=== PATIENT | male | born 1935 | race Caucasian/White ===

== ENCOUNTER 2024-06-11 00:43 | Inpatient (IN) | payer MEDICARE, OTHER, SELFPAY ==
[2024-06-10 19:10] VITALS: BP 166/63
[2024-06-10 19:40] LABS: % Basophils 0.3 % (0-2); % Immature Granulocytes 0.5 % (0-0.5); % Lymphocytes 11.8 % (20.5-51.1); % Monocytes 10.3 % (1.7-9.3); % Neutrophils 77.1 % (42.2-75.2); Absolute Immature Granulocytes 0.1 10^3/uL (0-0.05); Absolute Lymphocytes 1.8 10^3/uL (1.2-3.4); Absolute Monocytes 1.6 10^3/uL (0.1-0.6); Absolute Neutrophils 11.7 10^3/uL (1.4-6.5); Hematocrit 45.4 % (39.0-52.0); Hemoglobin 14.7 g/dL (13.0-18.0); Mean Corp Hgb Conc. 32.4 g/dL (33.0-37.0); Mean Corpuscular Hgb 27.5 pg (27.0-31.0); Mean Corpuscular Volume 84.9 fL (80.0-94.0); Mean Platelet Volume 10.7 fL (7.4-10.4); Nucleated Red Blood Cells % 0 % (-); Platelet Count 182 10^3/uL (130-400); Red Blood Cell Count 5.35 10^6/uL (4.70-6.10); Red Cell Dist. Width 13.4 % (11.5-14.5); White Blood Cell Count 15.2 10^3/uL (4.8-10.8)
[2024-06-10 19:53] LABS: ALT (SGPT) 20 U/L (0-50); AST (SGOT) 26 U/L (17-59); Albumin 3.9 g/dl (3.5-5.0); Alkaline Phosphatase 73 U/L (38-126); Blood Urea Nitrogen 31 mg/dl (9-20); Calcium 9.2 mg/dl (8.4-10.2); Carbon Dioxide 25 mmol/L (22-30); Chloride 101 mmol/L (98-107); Glucose 162 mg/dl (70-99); Lipase 168 U/L (23-300); Potassium 4.5 mmol/L (3.5-5.1); Sodium 137 mmol/L (135-145); Total Bilirubin 2.8 mg/dl (0.2-1.3); Total Protein 6.8 g/dl (6.3-8.2); eGFR 52.84
[2024-06-10 20:04] LABS: Troponin I 0.015 ng/ml
[2024-06-10 20:25] VITALS: BP 126/91
[2024-06-10 21:00] VITALS: BP 123/67
[2024-06-10 22:00] VITALS: BP 116/63
[2024-06-10 22:12] LABS: Lactic Acid 1.7 mmol/L (0.7-2.0)
[2024-06-10 23:11] VITALS: BP 138/99
--- NOTE | 2024-06-10 23:28 | ED.GENMED ---
History of Present Illness
General
Chief Complaint: Abdominal Pain
Source: patient and spouse
Exam Limitations: dementia
Time Seen by Provider: 06/10/24 20:25
History of Present Illness
History of Present Illness:
This is a 88-year-old female with a history of mild dementia who presents with abdominal pain. Family states that he has been having off-and-on abdominal symptoms over some time but over the last 6 to 7 days has had more of a persistent upper
abdominal pain. Also noted him to be bloating and has had poor appetite. No vomiting. No diarrhea. The patient is pleasantly confused and states he otherwise is 'okay'. Family states that he also seems to be a little more short of breath than
usual. She is not sure if it is related to the abdominal pain and irritation of the diaphragm. No noted fevers.
Past History
Past History
ED Past Medical History: Arrthythmia, GERD, Hypercholesterolemia, NIDDM (Diet-controlled) and Other (Cervical and lumbar disc disease, BPH, osteoarthritis)
ED Past Surgical History: Cardiac (Ablation), Orthopedic (Knee surgery 2002, left index finger repair in 2004, growth removed from right wrist 2006) and Other (bladder surgery for bladder tumors)
Social History
Tobacco: Non-smoker
Alcohol: Occasional
Drug: None
Personal:
Living: with family
Employment: Employed
Family History
Family History: Diabetes and Other (n/c)
Phy Exam
Physical Exam
Physical Exam:
CONSTITUTIONAL Patient alert and oriented to person, place. Well-appearing. Vital signs reviewed.
HEAD atraumatic, normocephalic.
EYES eyelids normal to inspection, Extraocular muscles intact, Conjunctiva normal, Sclera normal.
NECK normal range of motion, Trachea midline, no jugular venous distention.
RESPIRATORY CHEST No respiratory distress noted, Chest expansion equal, Bilateral breath sounds clear.
CARDIOVASCULAR irregularly irregular and tachycardic
ABDOMEN moderate to severe right upper quadrant tenderness, mild right mid abdominal tenderness, positive Vines's, Bowel sounds normal. No distention.
BACK normal inspection, no obvious deformities
UPPER EXTREMITY range of motion normal, Motor strength normal, no cyanosis, no edema.
LOWER EXTREMITY range of motion normal, Motor strength normal, no cyanosis, no edema.
NEURO Speech normal, No focal motor deficits, Cranial Nerves intact to screening exam.
SKIN skin warm, dry, and normal in color.
Course
Orders/Labs/Results
Orders:
Orders
06/10/24 19:18
Electrocardiogram (*1) Urgent
Reason for Study: Abdominal Pain
EKG- Treatment ONCE
06/10/24 19:29
Complete Blood Count/With Diff Urgent
Comprehensive Metabolic Panel Urgent
Lipase Urgent
Troponin I Urgent
06/10/24 21:48
CT Abd/pelvis W Iv Cont Urgent
Comment:
Reason For Exam: R sided abd pain
06/10/24 21:49
CR Chest - 2 Views Urgent
Comment:
Reason For Exam: sob
06/10/24 21:55
Lactic Acid Urgent
06/10/24 23:27
Zosyn 3.375 grams IVPB NOW Piperacillin/Tazo 3.375 Gram [Zosyn] 3.375 gram in 50 ml IV NOW
Abnormal Lab Results
06/10/24
19:29
WBC 15.2 H 10^3/uL
(4.8-10.8)
MCHC 32.4 L g/dL
(33.0-37.0)
MPV 10.7 H fL
(7.4-10.4)
Abs Immat Gran (auto) 0.1 H 10^3/uL
(0-0.05)
Absolute Neuts (auto) 11.7 H 10^3/uL
(1.4-6.5)
Absolute Monos (auto) 1.6 H 10^3/uL
(0.1-0.6)
Neutrophils % 77.1 H %
(42.2-75.2)
Lymphocytes % 11.8 L %
(20.5-51.1)
Monocytes % 10.3 H %
(1.7-9.3)
BUN 31 H mg/dl
(9-20)
Glucose 162 H mg/dl
(70-99)
Total Bilirubin 2.8 H mg/dl
(0.2-1.3)
06/10/24 19:29
06/10/24 19:29
Vital Signs
Initial and Last Documented VS:
Initial Vital Signs
Temp Pulse Resp BP Pulse Ox
98.4 F 72 18 166/63 94
06/10/24 19:10 06/10/24 19:10 06/10/24 19:10 06/10/24 19:10 06/10/24 19:10
Last Documented Vital Signs
Temp Pulse Resp BP Pulse Ox
98.4 F 113 23 138/99 95
06/10/24 19:10 06/10/24 23:15 06/10/24 23:05 06/10/24 23:11 06/10/24 23:15
MDM/Problems Addressed
Differential Diagnosis Includes:
Colitis, diverticulitis, acute cholecystitis, choledocholithiasis, pancreatitis
MDM/Problems Addressed:
Acute emphysematous cholecystitis, acute A-fib with rapid ventricular rate
*Radiology
Radiology exam reviewed: preliminary read by ED provider (No free air, inflamed gallbladder noted)
*Pulse Oximetry
Patient hypoxic: no
*EKG
Interpreted by ED Provider?: Yes
Interpretation: abnormal
Rate: tachycardiac
Rhythm: a-fib
[place]: left axis deviation
QRS Pattern: right bundle branch block
Ischemia: non-specific ST changes
*Nurse Plastics Interpretation
Rate: tachycardiac
Interpretation: abnormal
Rhythm: a-fib
*Critical Care Note
Total Time (30-74mins, 75-104mins- exclusive of procedures): 40 minutes
Data Reviewed
Source: patient and spouse
Patient Management
Discussion with other providers: Purchasing Internship (Case discussed with surgery)
Escalation/DeEscalation of care consider admission/obs:
88-year-old female presents with upper abdominal pain. Patient is quite tender in the right upper quadrant with leukocytosis. Found to have acute cholecystitis with gas suggestive emphysematous cholecystitis. Patient also found to be in atrial
fibrillation. Likely contributing to his shortness of breath that was reported. He is not hypoxic. Will control his rate. IV fluids and admit. Case discussed with surgery who will see in consultation. Antibiotics given
ED Attending Note
-
Portions of this chart may have been created with voice recognition software.� Occasional wrong word or��sound alike� substitutions may have occurred due to the inherent limitations of voice recognition software.
Discharge Plan
Departure
Patient Disposition: Admit
Date of Disposition: 06/10/24
Time of Disposition: 23:30
Admit to: Med/Surg
Presentation/result/management discussed w/ accepting MD/DO: Hospitalist
Discharge Problem:
Acute cholecystitis, Atrial fibrillation with rapid ventricular response, Chronic dementia
Prescriptions:
No Action
tamsulosin 0.4 MG capsule
0.4 mg PO HS
multivitamin 1 EACH tablet
1 ea PO DAILY
dutasteride [Avodart] 0.5 MG capsule
0.5 mg PO HS
aspirin 81 MG tablet,delayed release (DR/EC)
81 mg PO HS
coenzyme [id number] E 1 CAP capsule
1 cap PO HS
Turmeric 1 CAPSULE Capsule
1 cap PO DAILY
Referrals:
Jn Rouse MD [Family Provider] -
Interventions
Interventions:
*Risk Screen - Suicide Last Done: 06/10/24 19:10
*General Assessment Last Done: 06/10/24 19:10
*Neglect/Abuse Screening Last Done: 06/10/24 19:10
*ED COVID-19 Vaccine History Last Done: 06/10/24 19:10
TH-Fwqzph-Yponwdnzce Assessment Last Done: 06/10/24 21:36
Discharge Date and Time
Print Language: LATVIAN
[2024-06-10] MEDS: ZOSYN 50 IV (23:36)
[2024-06-10] MEDS: NSS 500 IV (23:43)
[2024-06-10 23:50] VITALS: BP 134/74
[2024-06-10] MEDS: CARDIZEM 10 MG IV (23:58)
[2024-06-11] VITALS (26 sets, daily range): BP systolic 100–137; BP diastolic 58–101; BMI 27.3
[2024-06-11] MEDS: CARDIZEM 125 IV (00:02)
--- NOTE | 2024-06-11 00:35 | HPS.HSE ---
Family Physician
-
Family Physician: Jn Rouse
Chief Complaint
-
Abd Pain
History of Present Illness
Patient is an 88y M with PMH significant for bladder cancer and dementia who presents to ED complaining of abdominal pain. History obtained primarily from family at the bedside given patient's baseline cognitive impairment. Patient has history
of intermittent indigestion symptoms with heartburn, belching and some abdominal discomfort. This typically occurs after spicy meals, red sauce, etc. He usually takes some Rums or Pepcid and his symptoms improve. Friday evening after dinner
patient developed similar symptoms. These symptoms seemed more severe and lasted longer than prior episodes. He ate very little Friday. He had dinner Friday and his symptoms became worse.
No fevers or chills. No N/V.
Today patient was walking his dog when he noted more severe epigastric abdominal pain. also noted that he appeared to be short of breath.
They presented to the ED for further evaluation and treatment.
At the time of my examination, patient is resting comfortably and has no complaints.
Medical History
Past Medical History
Past Medical History: Reports Other
Additional Past Medical History:
Senile Dementia
Bladder Cancer s/p TURBT and Chemo
COPD
Hypertension
SVT
GERD
Past Surgical History: Reports Other
Additional Past Surgical History:
TURBT x 2
TKA
Pilonidal Cyst Excision
SVT Ablation
Social History
Tobacco: Former Smoker (Quit smoking 30 years ago. Approx 30 pack years total use.)
Alcohol: Occasional
Living: With Family
Family History
Family History: Not pertinent
Allergies / Home Medications
Allergies reflects when Allergies were last updated in [facility].
Home Medications with original date entered in [facility]
Allergy/Medication List:
Allergies
Allergy/AdvReac Type Severity Reaction Status Date / Time
venom-honey bee Allergy BEE Verified 06/10/24 19:17
STING-DIFFICULTY
BREATHING/ACUTE
SWELLING
Home Medications
tamsulosin 0.4 mg capsule 0.4 mg PO HS 05/26/12
dutasteride 0.5 mg capsule (Avodart) 0.5 mg PO HS 12/15/19
magnesium glycinate 100 mg (as glycinate) tablet 500 mg PO BID 06/11/24
Review of Systems
-
History Source: Patient and Family
A 12 point ROS was completed and negative except as noted: Yes
Constitutional: Denies Fever or Chills
Respiratory: Reports Trouble Breathing; Denies Cough
Cardiac: Denies Chest Pain or Palpitations
Abdomen/GI: Reports Abdominal Pain and Other (Belching.); Denies Nausea, Vomiting, Diarrhea or Constipated
: Denies Dysuria or Frequency
Musculoskeletal: Denies Joint Pain or Edema
Neurological: Denies Dizzy or Headache
Psych: Denies Depression or Anxiety
Physical Exam
Vital Signs
Vital Signs
Temp Pulse Resp BP Pulse Ox
99.3 F 103 15 104/58 95
06/10/24 23:40 06/11/24 00:30 06/11/24 00:30 06/11/24 00:22 06/11/24 00:30
Physical Exam
General: Other (88y M in no acute distress.)
HEENT: Moist mucous membranes and PERRLA
Respiratory: Clear; No Wheezes, Rales or Rhonchi
Cardiac: S1/S2, Irregular Rhythm and Tachycardia; No Murmur
GI: Soft, Non Distended, Normal Bowel Sounds and Other (Pos RUQ tenderness without rebound / guarding.)
Musculoskeletal: No Clubbing, No Cyanosis and No Edema
Neuro: Awake and Alert; No Oriented
Laboratory Results
-
06/10/24 19:29
06/10/24 19:29
Laboratory Results
Lactic Acid 1.7 mmol/L (0.7-2.0) 06/10/24 21:55
Total Bilirubin 2.8 mg/dl (0.2-1.3) H 06/10/24 19:29
AST 26 U/L (17-59) 06/10/24 19:29
ALT 20 U/L (0-50) 06/10/24 19:29
Alkaline Phosphatase 73 U/L (38-126) 06/10/24 19:29
Troponin I 0.015 ng/ml 06/10/24 19:29
Lipase 168 U/L (23-300) 06/10/24 19:29
Impression/Plan
-
A/P: Patient is an 88y M with PMH significant for hypertension, bladder cancer and dementia who presents to ED for evaluation of abdominal pain.
Acute Cholecystitis
Sepsis secondary to the above
- Admit for further evaluation and treatment.
- Patient presents with tachycardia, tachypnea and leukocytosis with symptoms and imaging findings c/w acute cholecystitis.
- Continue IV abx with Zosyn.
- Surgery evaluation for additional recommendations.
- Supportive care including IVFs, pain control, antiemetics, etc.
- Follow for any new / worsening symptoms.
Atrial Fibrillation with Rapid Ventricular Response - New
- Prior h/o SVT (s/p ablation) but no prior A-Fib per family.
- Continue IV Cardizem and titrate as needed.
- Cardiology evaluation for additional recommendations.
- Hold on initiation of anticoagulation for now given acute cholecystitis / likely need for eventual surgery.
BPH
History of Bladder Cancer
- Stable. Continue tamsulosin and dutasteride.
- Bladder scan protocol.
COPD without Acute Exacerbation
- Stable. DuoNebs PRN.
Senile Dementia
- No behavioral issues, agitation, etc.
- Fairly significant short term memory impairment - requires frequent redirecting.
DVT Prophylaxis: SCDs
Code Status: Full
[2024-06-11] MEDS: NSS 1000 IV ×2 (02:35→15:35)
[2024-06-11 03:43] LABS: Hematocrit 41.6 % (39.0-52.0); Hemoglobin 13.4 g/dL (13.0-18.0); Mean Corp Hgb Conc. 32.2 g/dL (33.0-37.0); Mean Corpuscular Hgb 27.3 pg (27.0-31.0); Mean Corpuscular Volume 84.7 fL (80.0-94.0); Mean Platelet Volume 10.4 fL (7.4-10.4); Platelet Count 165 10^3/uL (130-400); Red Blood Cell Count 4.91 10^6/uL (4.70-6.10); Red Cell Dist. Width 13.5 % (11.5-14.5); White Blood Cell Count 15.1 10^3/uL (4.8-10.8)
[2024-06-11 04:03] LABS: ALT (SGPT) 20 U/L (0-50); AST (SGOT) 24 U/L (17-59); Albumin 3.6 g/dl (3.5-5.0); Alkaline Phosphatase 68 U/L (38-126); Blood Urea Nitrogen 33 mg/dl (9-20); Calcium 8.4 mg/dl (8.4-10.2); Carbon Dioxide 24 mmol/L (22-30); Chloride 105 mmol/L (98-107); Direct Bilirubin 0.3 mg/dl (0.0-0.4); Estimated Creatinine Clearance 57 ml/min; Glucose 159 mg/dl (70-99); Potassium 4.7 mmol/L (3.5-5.1); Sodium 137 mmol/L (135-145); Total Bilirubin 2.4 mg/dl (0.2-1.3); Total Protein 6.1 g/dl (6.3-8.2); eGFR > 60.00
--- NOTE | 2024-06-11 04:03 | PTCARENOTE ---
received verbal report from Marysol UGALDE. Patient transported via stretcher with all belongings without issue. Patient can be confused at times and is very forgetful. Cardizem gtt running at 5. IV fluids running at 100. Patient resting in bed with
call duran in reach.
[2024-06-11] MEDS: ZOSYN 50 IV ×3 (05:26→23:31)
--- NOTE | 2024-06-11 07:43 | CON.CAR ---
Addendum entered and electronically signed by Shawn Rodriguez MD 06/11/24 10:01:
I saw and examined the patient.
The TRANSFER CAR OPERATOR DRIER or PA's note was reviewed and I agree with the note.
Comment: General: Well developed, well nourished in NAD.
Neck: Supple, no JVD, HJR, carotids +2 B/L, no bruits bilaterally.
Heart: Non displaced PMI, irregular, no murmurs, No S3, S4, no rubs.
Lungs: Scattered rhonchi
Extremities: No clubbing, cyanosis or edema bilaterally.
Neuro: Grossly nonfocal, awake, alert and oriented x3.
Carl has history of SVT status post ablation 2016, hypertension, hyperlipidemia, diabetes, syncope, COPD, bladder cancer, GERD, dementia. He presented with abdominal pain found to have cholecystitis. He is also found to be in rapid atrial
fibrillation started on IV Cardizem drip. Cardiology is consulted for atrial fibrillation. He denies chest pain, short of breath or palpitations but is a poor historian.
Will rate control A-fib with IV Cardizem. Stable cardiology status for cholecystectomy without further testing. Will address atrial fibrillation after surgery. Might opt for rate control and anticoagulation when safe from a surgical standpoint as
appears to be asymptomatic.
Original Note:
Consultation
Consultation Request
Date/Time Consultation Requested: 06/11/2024
Date/Time Consultation Performed: 06/11/2024
Requesting Provider: Dr. Owens
Performing Provider: Bonnie Gleason PA-C for Dr. Rodriguez
Reason for Consultation: Atrial fibrillation
Medical History
-
History of Present Illness:
Patient is an 88-year-old male with past medical history significant for SVT, hypertension, hyperlipidemia, DM, syncope, tobacco abuse/COPD, bladder cancer status post TURBT x 2 and chemo, GERD and dementia who presented to emergency department
06/10/2024 with complaints of ongoing intermittent abdominal pain, belching, heartburn worse after eating spicy foods. Symptoms improved with Tums or Pepcid. On presentation patient found to be tachycardic and tachypneic as well as a leukocytosis.
Concerns for acute cholecystitis on CT of abdomen and surgery has been consulted. ECG showed atrial fibrillation with rapid ventricular response which was new diagnosis. Troponin 0.015. Patient was placed on IV antibiotics and IV Cardizem drip.
Cardiology being asked to see patient given atrial fibrillation.
Talked with who helps to provide history. She reports her is generally active and walks a dog. He does some chores around the house and can go up and down the steps without having to stop. He has not complained of any chest pain or
palpitations to her.
Past medical history:
SVT, ablation 2016
Hypertension
Hyperlipidemia
Type 2 diabetes
Syncope
Tobacco abuse/COPD
Bladder cancer status post TURBT x 2 and chemo
GERD
Dementia
Past Medical History
Past Medical History: Other (See HPI)
Past Surgical History: Cardiac (SVT ablation 2016), Orthopedic (Knee replacement), Urological (TURP x 2) and Other (Pilonidal cyst excision)
Social History
Tobacco: Former Smoker
Alcohol: Occasional
Drug: None
Personal:
Living: With Family
Family History
Family History: CAD (Father, mother) and Diabetes
Allergies / Home Medications
Allergy/AdvReac Type Severity Reaction Status Date / Time
venom-honey bee Allergy BEE Verified 06/10/24 19:17
STING-DIFFICULTY
BREATHING/ACUTE
SWELLING
�Medication �Instructions �Recorded �Confirmed �Type
tamsulosin 0.4 mg capsule 0.4 mg PO HS 05/26/12 06/10/24 History
dutasteride 0.5 mg capsule 0.5 mg PO HS 12/15/19 06/10/24 History
(Avodart)
magnesium glycinate 100 mg (as 500 mg PO BID 06/11/24 06/11/24 History
glycinate) tablet
Review of Systems
-
History Source: Patient and Family
All other systems: Negative unless noted
Physical Exam
Vital Signs
Temp Pulse Resp BP Pulse Ox
99.6 F 92 28 107/78 93
06/11/24 04:36 06/11/24 03:45 06/11/24 03:45 06/11/24 02:08 06/11/24 03:45
GEN: No distress, awake, Ox3 lying in bed
HEENT: supple, anicteric, mmm
LUNGS: CTA, no wheezes/rales
CV: Irregularly irregular, S1/S2, 1/6 syst murmur apex
ABD: soft, hyperactive BS, NT/ND
EXT: No edema clubbing or cyanosis
NEURO: Gross non-focal
SKIN: No rash, warm, dry, pink
Lab Results
06/11/24 03:26
06/11/24 03:26
Troponin I 0.015 ng/ml 06/10/24 19:29
Impression / Plan
-
PCP: Jn Rouse
Manager Of Change: Dr. Rodriguez, last seen in 2019
Impression:
Presented 06/10/2024 with abdominal pain, belching, heartburn
Acute cholecystitis
Leukocytosis
Atrial fibrillation with rapid ventricular response
SVT, ablation 2016
Hypertension
Hyperlipidemia
Type 2 diabetes
Syncope
Tobacco abuse/COPD
Bladder cancer status post TURBT x 2 and chemo
GERD
Dementia
Echo 02/24/19: EF 60%, mild conc lvh, mild prolapse of posterior leaflet with mild-mod mr, mild ai�������
Fady mibi 02/2019: fixed inferior defect
Plan:
-Presented 06/10/2024 with abdominal pain, belching, heartburn with leukocytosis and found to acute cholecystitis on CT.
-Now on IV antibiotics. Surgery plans to take to OR today
-New onset atrial fibrillation with rapid ventricular response. Heart rates reasonably controlled on IV diltiazem drip. Also on low-dose Lopressor.
-Blood pressure stable although soft. Consider fluid bolus prior to the OR
-Will need eventual anticoagulation once cleared surgery, t/c heparin if surgery does not want to start OAC post op
-Echo in 2019 with preserved ejection fraction with mild to moderate MR and mild AI. Eventual echo but not needed prior to surgery
-Lexiscan stress test 2019 showed fixed inferior defect. Troponin negative on admission.
-Discussed with patient has good functional capacity and is able to go up and down steps and walk his dog without cardiac complaints or symptoms. Patient stable to go to OR without cardiac testing.
Plan discussed with patient, patient's Dr. Lakhwinder Fowler, nursing
HPI
Patient is an 88-year-old male with past medical history significant for SVT, hypertension, hyperlipidemia, DM, syncope, tobacco abuse/COPD, bladder cancer status post TURBT x 2 and chemo, GERD and dementia who presented to emergency department
06/10/2024 with complaints of ongoing intermittent abdominal pain, belching, heartburn worse after eating spicy foods. Symptoms improved with Tums or Pepcid. On presentation patient found to be tachycardic and tachypneic as well as a leukocytosis.
Concerns for acute cholecystitis on CT of abdomen and surgery has been consulted. ECG showed atrial fibrillation with rapid ventricular response which was new diagnosis. Troponin 0.015. Patient was placed on IV antibiotics and IV Cardizem drip.
Cardiology being asked to see patient given atrial fibrillation.
Talked with who helps to provide history. She reports her is generally active and walks a dog. He does some chores around the house and can go up and down the steps without having to stop. He has not complained of any chest pain or
palpitations to her.
Data Reviewed
-
EKG: Report Reviewed by me, Discussed with Physician, Discussed with Nurse, Discussed with Patient and Discussed with Family
CT Scan: Report Reviewed by me, Discussed with Physician, Discussed with Nurse, Discussed with Patient and Discussed with Family
Labs: Labs Reviewed by me, Discussed with Physician, Discussed with Nurse, Discussed with Patient and Discussed with Family
Old Records: Reviewed
[2024-06-11] MEDS: PROTONIX IV 40 MG IV (08:15)
[2024-06-11] MEDS: NSS (PRESERVATIVE FREE) 10 ML IV (08:15)
[2024-06-11] MEDS: LOPRESSOR 25 MG PO ×2 (08:16→19:22)
[2024-06-11] MEDS: PROSCAR 5 MG PO (08:16)
--- NOTE | 2024-06-11 08:31 | CON.GS ---
Addendum entered and electronically signed by Anibal Sosa MD 06/11/24 11:26:
I saw and examined the patient.
The Cake Froster's note was reviewed and I agree with the note.
Comment: Several days of pain. No complaints this am, pain improved. Exam soft, mild ttp to RUQ without guarding. AAOx3. 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 Rec lap [place]. Informed consent obtained. OCTOR. D/w she agrees with the
plan. All ?s answered.
Original Note:
Consultation
-
Date/Time Consultation Performed: 06/11/24829
Performing Provider: Alaina Sosa
Medical History
-
Chief Complaint: Right sided abdominal pain
History of Present Illness:
Mr Sams is an 88 yo male with a h/o dementia, bladder ca s/p TURBT x2 and SVT s/p ablation who presented through the ED with intermittent belching, heartburn and right upper abdominal pain after meals for the past 5 days. RUQ is tender on exam. He
denies n/v. He is a limited historian, but does live with his spouse who is able to assist with history. She notes that the initial onset of symptoms was after dinner on Friday. No fevers or chills.
Past Medical History
Past Medical History: Arrhythmias (svt ablation), Cancer (bladder), COPD, GERD and Other (BPH)
Past Surgical History: Orthopedic (tka), Urological (turbt x2) and Other (pilonidal cyst)
Social History
Tobacco: Former Smoker
Alcohol: None
Personal:
Living: With Family
Family History
Family History: Reviewed & Not Pertinent
Allergies / Home Medications
Allergy/AdvReac Type Severity Reaction Status Date / Time
venom-honey bee Allergy BEE Verified 06/10/24 19:17
STING-DIFFICULTY
BREATHING/ACUTE
SWELLING
�Medication �Instructions �Recorded �Confirmed �Type
tamsulosin 0.4 mg capsule 0.4 mg PO HS Urinary Issue 05/26/12 06/10/24 History
dutasteride 0.5 mg capsule 0.5 mg PO HS Urinary Issue 12/15/19 06/10/24 History
(Avodart)
magnesium glycinate 100 mg (as 500 mg PO BID Electrolyte Repletion 06/11/24 06/11/24 History
glycinate) tablet
Review of Systems
-
Unable to obtain full review of systems at this time due to: Dementia
History Source: Patient and Family
All other systems: Negative unless noted
A 10 point review of systems was completed, and was negative except as per HPI.
Physical Exam
Vital Signs
Temp Pulse Resp BP Pulse Ox
99.6 F 96 28 101/75 93
06/11/24 04:36 06/11/24 08:16 06/11/24 03:45 06/11/24 08:16 06/11/24 03:45
06/10/24 06/11/24 06/12/24
06:59 06:59 06:59
Actual Weight 101.7 kg
Body Mass Index (BMI) 27.3
Lab Results
06/11/24 03:26
06/11/24 03:26
WBC 15.1 10^3/uL (4.8-10.8) H 06/11/24 03:26
Hgb 13.4 g/dL (13.0-18.0) 06/11/24 03:26
Hct 41.6 % (39.0-52.0) 06/11/24 03:26
Plt Count 165 10^3/uL (130-400) 06/11/24 03:26
Abs Immat Gran (auto) 0.1 10^3/uL (0-0.05) H 06/10/24 19:29
Neutrophils % 77.1 % (42.2-75.2) H 06/10/24 19:29
Physical Exam
General: Well Developed and Well Nourished
HEENT: Moist Mucous Membranes
Respiratory: Non Labored Respirations
GI: Soft, Non Distended and Tender (RUQ)
Skin: Warm and Dry
Neuro: Awake and Alert
Psych: Calm
Data Reviewed
-
CT Scan: Image Personally Visualized and interpreted, Report Reviewed by me, Discussed with Nurse, Discussed with Patient and Discussed with Family
Labs: Labs Reviewed by me, Discussed with Physician, Discussed with Patient and Discussed with Family
Old Records: Reviewed
Assessment / Plan
-
88 yo male with a h/o dementia, bladder ca tx TURBT and SVT s/p ablation who presents with RUQ abdominal pain over the past 5 days after meals now more persistent. CT imaging reviewed and consistent with acute calculous cholecystitis with RUQ
tenderness on exam. Mild elevation in bilirubin with normal direct bili, low suspicion. Noted leukocytosis of 15.1. Afebrile. Rapid afib noted on presentation, currently rate controlled with IV cardizem. BP stable.
--NPO for OR today for cholecystectomy
--Continue IV abx with IV Zosyn
--Analgesics prn
--IVF while NPO
Patient agreeable to surgery. Call was placed to the patient's spouse who is agreeable to proceeding with surgery as well.
--- NOTE | 2024-06-11 09:22 | W.PN.HOSP.TC ---
Today's Communication/Plan
-
see PN
Assessment / Plan
Assessment / Plan
88yo M with dementia, BPH, HFpEF, moderate MR brought with days of abdominal pain found acute cholecystitis with Afib with RVR
A/P:
#New onset Afib with RVR
2/2 infection
Wean off Cardizem drip to BB
cardio consult
start anticoagulation postOP when GenSx allows
#Acute emphysematous cholecystitis
#Bilirubinemia 2/2 above, cannot exclude choledocholithiasis
Zosyn
follow LFT
GenSx for OP
#BPH
watch for retention, follow labs
DVT ppx SCDs
FUll code
I have spent a tleast 58min reviewing chart, test reuslts, communication with consukltants and providing direct patient care
Anticipated Discharge: > 48 hours
Subjective/Interval History
-
Date of Service: June 11, 2024
Objective Data
-
Labs:
Laboratory Results
06/11/24
03:26
WBC 15.1 H
Hgb 13.4
Hct 41.6
Plt Count 165
Sodium 137
Potassium 4.7
Chloride 105
Carbon Dioxide 24
BUN 33 H
Creatinine 1.1
Glucose 159 H
Calcium 8.4
Total Bilirubin 2.4 H
AST 24
ALT 20
Alkaline Phosphatase 68
Vital Signs:
Vital Signs
Temp Pulse Resp BP Pulse Ox
99.6 F 96 28 101/75 93
06/11/24 04:36 06/11/24 08:16 06/11/24 03:45 06/11/24 08:16 06/11/24 03:45
I&O
06/10/24 06/11/24 06/12/24
06:59 06:59 06:59
Output Total 100 / 100
Balance -100 / -100
Review of Systems
-
History Source: Patient
All other systems: Reviewed and negative
Abdomen/GI: Reports Abdominal Pain
Physical Exam
-
General: No Apparent Distress
HEENT: Normocephalic
Respiratory: Clear to Auscultation
Cardiac: Irregular Rhythm
GI: Soft, Nondistended and Tender (RUQ)
Genito-urinary: No Costovertebral Tender
Neuro: Awake, Alert and Oriented
Psych: Calm and Apparent Dementia
--- NOTE | 2024-06-11 13:46 | W.IMMPOSTOP ---
Addendum entered and electronically signed by Anibal Sosa MD 06/11/24 14:05:
updated by phone.
Original Note:
Surgical Immed Post Op Note
-
Primary Surgeon: Sheila
Assisting: Lizette NGUYEN
Pre-op Diagnosis: Acute calculous cholecystitis
Post-op Diagnosis: Acute gangrenous suppurative cholecystitis
Procedure Performed: Robot assisted laparoscopic cholecystectomy
Anesthesia Type: GETA
Specimen / Cultures: Gallbladder
Estimated Blood Loss: 25cc
Complications: None immediate
Operative Findings: Tensely distended hydropic gallbladder with gangrenous/necrotic changes to wall, thick omental rind peeled down bluntly, gallbladder decompressed with purulent drainage; drain to subhepatic space because of purulence
--- NOTE | 2024-06-11 13:49 | OR.RPT ---
Operative Report
Operative Report
Primary Surgeon: Sheila
Assisting: Lizette NGUYEN
Pre-op Diagnosis: Acute calculous cholecystitis
Post-op Diagnosis: Acute gangrenous suppurative cholecystitis
Procedure Performed: Robot assisted laparoscopic cholecystectomy
Anesthesia Type: GETA
Specimen / Cultures: Gallbladder
Estimated Blood Loss: 25cc
Complications: None immediate
Operative Findings: Tensely distended hydropic gallbladder with gangrenous/necrotic changes to wall, thick omental rind peeled down bluntly, gallbladder decompressed with purulent drainage; drain to subhepatic space because of purulence
Date of Surgery:� 06/11/24
Indications: This 88M developed acute calculous cholecystitis. He had an elevatde indirect bilirubin and normal liver enzymes and no ductal dilation. Laparoscopic cholecystectomy with robotic assist was elected.
Description of procedure: The patient was placed on the operating table in the supine position. General anesthesia was induced. A time-out was completed verifying correct patient, procedure, site, positioning, and special equipment prior to
beginning this procedure. An orogastric tube was placed. The abdomen was prepped and draped in the usual sterile fashion. A stab incision was made in left upper quadrant and the Veress needle was inserted. Proper position was confirmed by aspiration
and saline meniscus test. The abdomen was insufflated with carbon dioxide to a pressure of 12mmHg. The patient tolerated insufflation well.
A 8mm trocar was then inserted above the umbilicus. The laparoscope was inserted and the abdomen inspected. No injuries from initial trocar placement or Veress needle insertion were noted. Additional 8mm trocars were then inserted in the following
locations: two in the right lower quadrant and to the left of the umbilicus and just above. The abdomen was inspected and no abnormalities were found. The table was placed in the reverse Trendelenburg position with the right side up. A thick rind of
omentum was bluntly swept away from the gallbladder fundus. The dome of the gallbladder was grasped with an atraumatic grasper and retracted over the dome of the liver. The wall ruptured at the cata site and hydropic fluid and pus drained as well
as a small number of very small stones. The infundibulum was then grasped with an atraumatic grasper and retracted toward the right lower quadrant. This maneuver exposed Calot�s triangle. The gallbladder was encased in thick inflammatory rind and
showed areas of gangrene and patchy necrosis. The peritoneum overlying the gallbladder infundibulum was then incised and the cystic duct and cystic artery identified and circumferentially dissected so that a clear view of the liver was achieved
through a window between the cystic duct an cystic artery. At this time, the only two structures going into the gallbladder were the cystic artery and cystic duct.
The cystic duct was then doubly clipped and divided. The cystic artery was controlled with bipolar and divided. The gallbladder was then dissected from its peritoneal attachments by electrocautery. The posterior plane was fibrotic and the wall was
thickened. The gallbladder was removed using an endoscopic retrieval bag placed through the umbilical port. The gallbladder was passed off the table as a specimen. The gallbladder fossa was irrigated with sterile saline until effluent ran clear.
There was no evidence of bleeding from the gallbladder fossa or cystic artery or leakage of the bile from the cystic duct stump. Due to the presence of pus a drain was placed through the left upper quadrant port site and placed in the subhepatic
space. The umbilical trocar site was closed at the fascial level with a 2-0 PDS figure of eight. Secondary trocars were removed under direct vision and noted to be hemostatic. The abdomen was allowed to collapse. The skin was closed with
subcuticular sutures of 4-0 monocryl and topical skin adhesive. The orogastric tube was removed.
The patient tolerated the procedure well and was taken to the postanesthesia care unit in stable condition.
The assistance of PATRICK Bauer was required due to the complexity of the procedure. During the procedure she assisted with retraction, resection, and closure of the wound.
[2024-06-11] MEDS: ZOSYN IV (14:08)
[2024-06-11] MEDS: SUBLIMAZE 50 MCG IV ×2 (14:41→15:06)
[2024-06-11] MEDS: ROXICODONE 5 MG PO (17:22)
--- NOTE | 2024-06-11 17:30 | CM ---
Patient with Hx dementia who is s/p Robot assisted lap [place], with Dx New onset Afib with RVR. O2 3L. Clear liquids. Receiving Cardizem gtt, IV Abx. Per nurse; confused at times, very forgetful.
Spoke with patient's Janeth;
the patient resides with his in a 2 story house with 2 RICHARD.
He is confused & forgetful at baseline.
The patient was independent in ADLs and ambulation.
He fell in the shower in Feb 2024.
DME - [facility]
Prior [facility].
No prior SNF.
PCP - Jn Rouse
[facility]
Offered VN and declined.
Plan home.
[2024-06-11] MEDS: DILAUDID 0.5 MG IV (18:08)
[2024-06-11] MEDS: ROXICODONE 10 MG PO (19:24)
[2024-06-11] MEDS: FLOMAX 0.4 MG PO (21:25)
--- NOTE | 2024-06-11 21:47 | PTCARENOTE ---
received patient from previous shift. Patient complaining of abdominal pain and holding belly where his incisions are, see MAR. at bedside with patient. Patient ate clear liquid diet for dinner. 5L NC sating low 90s. Assessment and vital signs
as documented. Call duran in reach.
[2024-06-12] VITALS (23 sets, daily range): BP systolic 113–151; BP diastolic 66–101
[2024-06-12] MEDS: ROXICODONE 5 MG PO (02:12)
[2024-06-12] MEDS: NSS 1000 IV (02:17)
[2024-06-12] MEDS: DILAUDID 0.5 MG IV ×5 (03:11→23:12)
[2024-06-12 03:30] LABS: % Basophils 0.3 % (0-2); % Immature Granulocytes 0.6 % (0-0.5); % Lymphocytes 5.8 % (20.5-51.1); % Monocytes 9.5 % (1.7-9.3); % Neutrophils 83.8 % (42.2-75.2); Absolute Immature Granulocytes 0.1 10^3/uL (0-0.05); Absolute Lymphocytes 0.8 10^3/uL (1.2-3.4); Absolute Monocytes 1.3 10^3/uL (0.1-0.6); Absolute Neutrophils 11.7 10^3/uL (1.4-6.5); Hematocrit 42.5 % (39.0-52.0); Hemoglobin 13.8 g/dL (13.0-18.0); Mean Corp Hgb Conc. 32.5 g/dL (33.0-37.0); Mean Corpuscular Hgb 27.6 pg (27.0-31.0); Mean Platelet Volume 10.5 fL (7.4-10.4); Nucleated Red Blood Cells % 0 % (-); Platelet Count 186 10^3/uL (130-400); Red Cell Dist. Width 13.6 % (11.5-14.5)
[2024-06-12 04:00] LABS: ALT (SGPT) 36 U/L (0-50); AST (SGOT) 45 U/L (17-59); Albumin 3.3 g/dl (3.5-5.0); Alkaline Phosphatase 66 U/L (38-126); Blood Urea Nitrogen 27 mg/dl (9-20); Calcium 8.1 mg/dl (8.4-10.2); Carbon Dioxide 23 mmol/L (22-30); Chloride 106 mmol/L (98-107); Estimated Creatinine Clearance 70 ml/min; Glucose 244 mg/dl (70-99); Potassium 4.9 mmol/L (3.5-5.1); Sodium 138 mmol/L (135-145); Total Bilirubin 1.9 mg/dl (0.2-1.3); eGFR > 60.00
[2024-06-12] MEDS: ZOSYN 50 IV ×4 (05:15→23:12)
[2024-06-12] MEDS: NSS (PRESERVATIVE FREE) 10 ML IV (07:31)
[2024-06-12] MEDS: PROTONIX IV 40 MG IV (07:31)
[2024-06-12] MEDS: PROSCAR 5 MG PO (07:34)
[2024-06-12] MEDS: LOPRESSOR 25 MG PO ×2 (07:34→08:01)
--- NOTE | 2024-06-12 07:40 | PTCARENOTE ---
Pt AAOx3 in obvious pain as he is holding his belly and is grimacing. Pt rates his pain at 7-8. Given pain med as ordered
[2024-06-12] MEDS: NSS IV (07:49)
--- NOTE | 2024-06-12 09:43 | W.PN.CARDCBS ---
Addendum entered and electronically signed by Shawn Rodriguez MD 06/12/24 10:53:
I saw and examined the patient.
The CLERGY MEMBER or PA's note was reviewed and I agree with the note.
Comment: General: Well developed, well nourished in NAD.
Neck: Supple, no JVD, HJR, carotids +2 B/L, no bruits bilaterally.
Heart: Non displaced PMI, irregular, no murmurs, No S3, S4, no rubs.
Lungs: Scattered rhonchi
Extremities: No clubbing, cyanosis or edema bilaterally.
Neuro: Grossly nonfocal, awake, alert and oriented x3.
He remains in atrial fibrillation. Will increase Lopressor to 50 mg p.o. twice daily. We could consider eventual DOM/cardioversion but may be more appropriate just to rate control and anticoagulate when okay from surgical standpoint as he appears
to be asymptomatic. Check echo
Original Note:
Today's Communication / Plan
-
Increase Lopressor to 50 mg twice a day
Continue antibiotics per primary service and surgery
Pain control
Will need eventual anticoagulation once cleared from surgical standpoint
Impression / Plan
-
PCP: Jn Rouse
Cistern Room Working Supervisor: Dr. Rodriguez, last seen in 2019
Impression:
Presented 06/10/2024 with abdominal pain, belching, heartburn
Acute cholecystitis
s/p Robot assisted laparoscopic cholecystectomy 06/11/24
Leukocytosis
Atrial fibrillation with rapid ventricular response
SVT, ablation 2016
Hypertension
Hyperlipidemia
Type 2 diabetes
Syncope
Tobacco abuse/COPD
Bladder cancer status post TURBT x 2 and chemo
GERD
Dementia
Echo 02/24/19: EF 60%, mild conc lvh, mild prolapse of posterior leaflet with mild-mod mr, mild ai�������
Fady mibi 02/2019: fixed inferior defect
Plan:
-Presented 06/10/2024 with abdominal pain, belching, heartburn with leukocytosis and found to acute cholecystitis on CT.
-s/p Robot assisted laparoscopic cholecystectomy 06/11/2024 with indwelling drain with blood-tinged/red fluid. Continue IV antibiotics per surgery and primary service
-New onset atrial fibrillation with rapid ventricular response. Initially on diltiazem drip however this was discontinued 06/11/24. Heart rates poorly controlled although patient is in pain which is likely contributing to heart rate elevation.
Lopressor uptitrated to 50 mg twice a day 06/12/24. Continue to monitor and trend response and treat pain
-Will need eventual anticoagulation once cleared surgery, still has indwelling drain with blood-tinged fluid
-Echo in 2019 with preserved ejection fraction with mild to moderate MR and mild AI. Eventual echo but not needed prior to surgery
-Lexiscan stress test 2019 showed fixed inferior defect. Troponin negative on admission.
Plan discussed with patient, patient's Dr. Lakhwinder Fowler, nursing
HPI
Patient is an 88-year-old male with past medical history significant for SVT, hypertension, hyperlipidemia, DM, syncope, tobacco abuse/COPD, bladder cancer status post TURBT x 2 and chemo, GERD and dementia who presented to emergency department
06/10/2024 with complaints of ongoing intermittent abdominal pain, belching, heartburn worse after eating spicy foods. Symptoms improved with Tums or Pepcid. On presentation patient found to be tachycardic and tachypneic as well as a leukocytosis.
Concerns for acute cholecystitis on CT of abdomen and surgery has been consulted. ECG showed atrial fibrillation with rapid ventricular response which was new diagnosis. Troponin 0.015. Patient was placed on IV antibiotics and IV Cardizem drip.
Cardiology being asked to see patient given atrial fibrillation.
Talked with who helps to provide history. She reports her is generally active and walks a dog. He does some chores around the house and can go up and down the steps without having to stop. He has not complained of any chest pain or
palpitations to her.
Progress Note - Cistern Room Working Supervisor
Subjective
Date of Service: June 12, 2024
Patient seen and examined. Patient lying in bed. Noting some abdominal discomfort and belching. Denies nausea. Denies chest pain, shortness of breath, palpitations
Objective
Labs:
06/12/24 03:20
06/12/24 03:20
Labs
Hgb 13.8 g/dL (13.0-18.0) 06/12/24 03:20
Hct 42.5 % (39.0-52.0) 06/12/24 03:20
Plt Count 186 10^3/uL (130-400) 06/12/24 03:20
Sodium 138 mmol/L (135-145) 06/12/24 03:20
Potassium 4.9 mmol/L (3.5-5.1) 06/12/24 03:20
BUN 27 mg/dl (9-20) H 06/12/24 03:20
Creatinine 0.9 mg/dL (0.7-1.3) 06/12/24 03:20
Glucose 244 mg/dl (70-99) H 06/12/24 03:20
Troponins
06/10/24
19:29
Troponin I 0.015
Vital Signs and I&O:
Vital Signs
Temp Pulse Resp BP Pulse Ox
97.9 F 108 24 120/78 94
06/12/24 07:15 06/12/24 08:01 06/12/24 06:00 06/12/24 08:01 06/12/24 08:00
Vital Signs
Temp Pulse Resp BP Pulse Ox
97.9 F 108 24 120/78 94
06/12/24 07:15 06/12/24 08:01 06/12/24 06:00 06/12/24 08:01 06/12/24 08:00
Intake & Output
06/10/24 06/11/24 06/12/24 06/13/24
06:59 06:59 06:59 06:59
Intake Total 960 / 960
Output Total 100 / 100 1450 / 1450 200 / 200
Balance -100 / -100 -490 / -490 -200 / -200
Physical Exam
Physical Exam
GEN: Appears uncomfortable, awake, Ox3 lying in bed
HEENT: supple, anicteric, mmm
LUNGS: CTA, no wheezes/rales
CV: Irregularly irregular, S1/S2, 1/6 syst murmur apex
ABD: Mildly distended, tender, indwelling YULISSA drain with blood-tinged fluid
EXT: No edema clubbing or cyanosis
NEURO: Gross non-focal
SKIN: No rash, warm, dry, pink
--- NOTE | 2024-06-12 10:55 | W.PN.HOSP.TC ---
Today's Communication/Plan
-
COnt Abx
mgmt by Sx for drain
stop IVF
cont diet
wean off post op O2
Assessment / Plan
Assessment / Plan
88yo M with dementia, BPH, HFpEF, moderate MR brought with days of abdominal pain found acute cholecystitis with Afib with RVR
A/P:
#New onset Afib with RVR
2/2 infection
Wean off Cardizem drip to BB
cardio consult
start anticoagulation postOP when GenSx allows
#Acute gangrenous suppurative cholecystitis
#Bilirubinemia 2/2 above, cannot exclude choledocholithiasis
Zosyn
follow LFT
GenSx: s/p lap [place] on 06/12/24, purulent fluid in gall bladder
#BPH
watch for retention, follow labs
DVT ppx SCDs
FUll code
I have spent at least 38min reviewing chart, test results, communication with consultants and providing direct patient care
Anticipated Discharge: > 48 hours
Subjective/Interval History
-
Date of Service: June 12, 2024
Objective Data
-
Labs:
Laboratory Results
06/12/24
03:20
WBC 14.0 H
Hgb 13.8
Hct 42.5
Plt Count 186
Sodium 138
Potassium 4.9
Chloride 106
Carbon Dioxide 23
BUN 27 H
Creatinine 0.9
Glucose 244 H
Calcium 8.1 L
Total Bilirubin 1.9 H
AST 45
ALT 36
Alkaline Phosphatase 66
Vital Signs:
Vital Signs
Temp Pulse Resp BP Pulse Ox
97.9 F 108 24 120/78 94
06/12/24 07:15 06/12/24 08:01 06/12/24 06:00 06/12/24 08:01 06/12/24 08:00
I&O
06/11/24 06/12/24 06/13/24
06:59 06:59 06:59
Intake Total 960 / 960
Output Total 100 / 100 1450 / 1450 200 / 200
Balance -100 / -100 -490 / -490 -200 / -200
Review of Systems
-
History Source: Patient
All other systems: Reviewed and negative
Physical Exam
-
General: No Apparent Distress
HEENT: Normocephalic
Respiratory: Clear to Auscultation
Cardiac: Regular Rhythm
GI: Soft, Nontender, Nondistended and Other (JJ drain L with serosanguinous fluid)
Musculoskeletal: No Clubbing, No Cyanosis and No Edema
Neuro: Awake, Alert and Oriented
Psych: Calm
[2024-06-12] MEDS: ZOFRAN 4 MG IV (13:17)
--- NOTE | 2024-06-12 13:22 | PTCARENOTE ---
Pt now nauseated no vomiting. Burping Desat to 88 O2 up to4 l Zofran given
--- NOTE | 2024-06-12 15:55 | W.PN.GS2 ---
Today's Communication / Plan
-
NPO with sips
Analgesics
Assessment / Plan
-
88 yo male presenting with acute cholecystitis in rapid afib
POD #1 RAL cholecystectomy with gangrenous/necrotic gallbladder with purulent drainage encountered
YULISSA with nonbilious SSF
+belching/distention, XR consistent with adynamic ileus
--NPO with sips until bowel recovery
--C/W YULISSA, will likely be able to remove prior to d/c
--C/W ABX, anticipate 5-7 day total course. IV while inpatient for minimum of 24 hours post op
--Analgesics/antiemetics prn
--OOB as tolerated
--VTE ppx with sq lovenox and SCDs
Hold full dose anticoagulation for 48-72 hours post surgery
Subjective Data
-
Date of Service: June 12, 2024
Patient seen and examined at bedside with Dr. Tavera. Denies nausea but with significant abdominal distention and belching. ABD discomfort present and generalized, more so to drain site. Not passing flatus or stools.
Objective Data
-
Intake and Output
06/11/24 06/12/24 06/13/24
06:59 06:59 06:59
Intake Total 960 / 960 50 / 50
Output Total 100 / 100 1450 / 1450 200 / 200
Balance -100 / -100 -490 / -490 -150 / -150
Intake:
Oral fluids 960 / 960
IV piggybacks 50 / 50
Output:
Drain Output (Total) 40 / 40
Left Jai-Mercer 40 / 40
Urine, Voided 100 / 100 1410 / 1410 200 / 200
Vital Signs
Temp Pulse Resp BP Pulse Ox
97.9 F 112 29 130/84 90
06/12/24 11:15 06/12/24 13:00 06/12/24 13:00 06/12/24 13:00 06/12/24 13:00
Lab Results
06/12/24 03:20
06/12/24 03:20
Calcium 8.1 mg/dl (8.4-10.2) L 06/12/24 03:20
Total Bilirubin 1.9 mg/dl (0.2-1.3) H 06/12/24 03:20
Direct Bilirubin 0.3 mg/dl (0.0-0.4) 06/11/24 03:26
AST 45 U/L (17-59) 06/12/24 03:20
ALT 36 U/L (0-50) 06/12/24 03:20
Alkaline Phosphatase 66 U/L (38-126) 06/12/24 03:20
Total Protein 6.0 g/dl (6.3-8.2) L 06/12/24 03:20
Albumin 3.3 g/dl (3.5-5.0) L 06/12/24 03:20
Physical Exam
-
NAD, Ox3
ABD soft, distended, tender at incision sites
Incisions clear, dry, well approximated with intact glue
YULISSA with nonbilious SSF
[2024-06-12] MEDS: LOVENOX 40 MG SC (17:23)
[2024-06-12] MEDS: FLOMAX 0.4 MG PO (20:34)
[2024-06-12] MEDS: LOPRESSOR 50 MG PO (20:34)
[2024-06-13] VITALS (25 sets, daily range): BP systolic 113–163; BP diastolic 72–134
[2024-06-13] MEDS: ZOSYN 50 IV (05:21)
[2024-06-13 05:47] LABS: % Basophils 0.3 % (0-2); % Immature Granulocytes 0.9 % (0-0.5); % Lymphocytes 6.2 % (20.5-51.1); % Neutrophils 82.6 % (42.2-75.2); Absolute Immature Granulocytes 0.1 10^3/uL (0-0.05); Absolute Lymphocytes 0.9 10^3/uL (1.2-3.4); Absolute Monocytes 1.4 10^3/uL (0.1-0.6); Absolute Neutrophils 11.4 10^3/uL (1.4-6.5); Hematocrit 44.6 % (39.0-52.0); Hemoglobin 14.6 g/dL (13.0-18.0); Mean Corp Hgb Conc. 32.7 g/dL (33.0-37.0); Mean Corpuscular Hgb 27.2 pg (27.0-31.0); Mean Corpuscular Volume 83.2 fL (80.0-94.0); Mean Platelet Volume 10.1 fL (7.4-10.4); Nucleated Red Blood Cells % 0 % (-); Platelet Count 200 10^3/uL (130-400); Red Blood Cell Count 5.36 10^6/uL (4.70-6.10); Red Cell Dist. Width 13.5 % (11.5-14.5); White Blood Cell Count 13.8 10^3/uL (4.8-10.8)
[2024-06-13 06:11] LABS: ALT (SGPT) 36 U/L (0-50); AST (SGOT) 32 U/L (17-59); Albumin 3.2 g/dl (3.5-5.0); Alkaline Phosphatase 74 U/L (38-126); Blood Urea Nitrogen 37 mg/dl (9-20); Calcium 8.6 mg/dl (8.4-10.2); Carbon Dioxide 24 mmol/L (22-30); Chloride 106 mmol/L (98-107); Estimated Creatinine Clearance 70 ml/min; Glucose 199 mg/dl (70-99); Potassium 4.7 mmol/L (3.5-5.1); Sodium 139 mmol/L (135-145); Total Bilirubin 1.6 mg/dl (0.2-1.3); eGFR > 60.00
[2024-06-13] MEDS: PROTONIX IV 40 MG IV (08:47)
[2024-06-13] MEDS: NSS (PRESERVATIVE FREE) 10 ML IV (08:47)
[2024-06-13] MEDS: LOPRESSOR 50 MG PO (08:47)
[2024-06-13] MEDS: PROSCAR 5 MG PO (08:47)
--- NOTE | 2024-06-13 10:10 | PTCARENOTE ---
Addendum entered by Michelle Aldrich 06/13/24 10:35:
D/w Dr. Keane, awaiting surgery for assistance placing NGT.
Addendum entered by Michelle Aldrich 06/13/24 10:25:
Dr. Keane at bedside.
Original Note:
Order received for NGT to [facility]; unable to place despite multiple attempts. Pt with vomiting X2. Dr. Keane and Dr Tavera (surg ribbon cleaner) notified via TT.
--- NOTE | 2024-06-13 11:26 | W.PN.CARDCBS ---
Today's Communication / Plan
-
Remains in A-fib
Attempt to rate control with Lopressor
Eventual Eliquis when okay with surgery
Check echo
Impression / Plan
-
PCP: Jn Rouse
Remote Control Mirror Installer: Dr. Rodriguez, last seen in 2019
Impression:
Presented 06/10/2024 with abdominal pain, belching, heartburn
Acute cholecystitis
s/p Robot assisted laparoscopic cholecystectomy 06/11/24Leukocytosis
Atrial fibrillation with rapid ventricular response
SVT, ablation 2016
Hypertension
Hyperlipidemia
Type 2 diabetes
Syncope
Tobacco abuse/COPD
Bladder cancer status post TURBT x 2 and chemo
GERD
Dementia
Echo 02/24/19: EF 60%, mild conc lvh, mild prolapse of posterior leaflet with mild-mod mr, mild ai�������
Fady mibi 02/2019: fixed inferior defect
Plan:
Remains in A-fib with poor heart rate control at times
Heart rate control may be difficult at present because has distention and NG tube was attempted to be placed
Will continue rate control with Lopressor
Eventual anticoagulation with Eliquis when stable from surgical standpoint
NG tube to be placed and not ready for anticoagulation
Check echocardiogram
HPI
Patient is an 88-year-old male with past medical history significant for SVT, hypertension, hyperlipidemia, DM, syncope, tobacco abuse/COPD, bladder cancer status post TURBT x 2 and chemo, GERD and dementia who presented to emergency department
06/10/2024 with complaints of ongoing intermittent abdominal pain, belching, heartburn worse after eating spicy foods. Symptoms improved with Tums or Pepcid. On presentation patient found to be tachycardic and tachypneic as well as a leukocytosis.
Concerns for acute cholecystitis on CT of abdomen and surgery has been consulted. ECG showed atrial fibrillation with rapid ventricular response which was new diagnosis. Troponin 0.015. Patient was placed on IV antibiotics and IV Cardizem drip.
Cardiology being asked to see patient given atrial fibrillation.
Talked with who helps to provide history. She reports her is generally active and walks a dog. He does some chores around the house and can go up and down the steps without having to stop. He has not complained of any chest pain or
palpitations to her.
Progress Note - Remote Control Mirror Installer
Subjective
Date of Service: June 13, 2024
No complaints
Objective
Labs:
06/13/24 05:28
06/13/24 05:28
Labs
Hgb 14.6 g/dL (13.0-18.0) 06/13/24 05:28
Hct 44.6 % (39.0-52.0) 06/13/24 05:28
Plt Count 200 10^3/uL (130-400) 06/13/24 05:28
Sodium 139 mmol/L (135-145) 06/13/24 05:28
Potassium 4.7 mmol/L (3.5-5.1) 06/13/24 05:28
BUN 37 mg/dl (9-20) H 06/13/24 05:28
Creatinine 0.9 mg/dL (0.7-1.3) 06/13/24 05:28
Glucose 199 mg/dl (70-99) H 06/13/24 05:28
Troponins
06/10/24
19:29
Troponin I 0.015
Vital Signs and I&O:
Vital Signs
Temp Pulse Resp BP Pulse Ox
97.5 F 125 20 137/96 95
06/13/24 10:19 06/13/24 10:18 06/13/24 10:18 06/13/24 10:18 06/13/24 10:36
Vital Signs
Temp Pulse Resp BP Pulse Ox
97.5 F 125 20 137/96 95
06/13/24 10:19 06/13/24 10:18 06/13/24 10:18 06/13/24 10:18 06/13/24 10:36
Intake & Output
06/11/24 06/12/24 06/13/24 06/14/24
06:59 06:59 06:59 06:59
Intake Total 960 / 960 200 / 200
Output Total 100 / 100 1450 / 1450 985 / 985 190 / 190
Balance -100 / -100 -490 / -490 -785 / -785 -190 / -190
Physical Exam
Physical Exam
General: Well developed, well nourished in NAD.
Neck: Supple, no JVD, HJR, carotids +2 B/L, no bruits bilaterally.
Heart: Non displaced PMI, irregular, no murmurs, No S3, S4, no rubs.
Lungs: Scattered rhonchi
Abdomen: Distended
Extremities: No clubbing, cyanosis or edema bilaterally.
Neuro: Grossly nonfocal, awake, alert and oriented x3.
--- NOTE | 2024-06-13 11:30 | W.PN.HOSP.TC ---
Today's Communication/Plan
-
Needs NG
Merrem
Assessment / Plan
Assessment / Plan
88yo M with dementia, BPH, HFpEF, moderate MR brought with days of abdominal pain found acute cholecystitis with Afib with RVR. S/P cholecytectomy on 06/12/24. HR improved but postOP complicated with ileus and abd distension
A/P:
#New onset Afib with RVR
2/2 infection
Wean off Cardizem drip to BB
cardio consult
start anticoagulation postOP when GenSx allows
#Acute gangrenous suppurative cholecystitis
#Bilirubinemia 2/2 above, cannot exclude choledocholithiasis
Zosyn switched to Merrem on 06/13/24 since patient appears in distress from abd distension
follow LFT
GenSx: s/p lap [place] on 06/12/24, purulent fluid in gall bladder
#Acute hypoxic respiratory 2/2 abdominal distension
wean off O2 as possible
#Abdominal distension with ileus
concern for obstruction
NPO, NG tube (RN attempted and unsuccessful) - GenSx called
Repeat XR abd
#BPH
watch for retention, follow labs
DVT ppx SCDs (hold lovenox as per GenSx for 48h postOP)
FUll code
I have spent at least 58min reviewing chart, test results, communication with consultants, family and providing direct patient care
Anticipated Discharge: > 48 hours
Subjective/Interval History
-
Date of Service: June 13, 2024
Objective Data
-
Labs:
Laboratory Results
06/13/24
05:28
WBC 13.8 H
Hgb 14.6
Hct 44.6
Plt Count 200
Sodium 139
Potassium 4.7
Chloride 106
Carbon Dioxide 24
BUN 37 H
Creatinine 0.9
Glucose 199 H
Calcium 8.6
Total Bilirubin 1.6 H
AST 32
ALT 36
Alkaline Phosphatase 74
Vital Signs:
Vital Signs
Temp Pulse Resp BP Pulse Ox
97.5 F 125 20 137/96 95
06/13/24 10:19 06/13/24 10:18 06/13/24 10:18 06/13/24 10:18 06/13/24 10:36
I&O
06/12/24 06/13/24 06/14/24
06:59 06:59 06:59
Intake Total 960 / 960 200 / 200
Output Total 1450 / 1450 985 / 985 190 / 190
Balance -490 / -490 -785 / -785 -190 / -190
Review of Systems
-
All other systems: Reviewed and negative
Physical Exam
-
General: Appears in Distress
Respiratory: Clear to Auscultation
Cardiac: Irregular Rhythm
GI: Tender and Distended
Musculoskeletal: No Clubbing, No Cyanosis and No Edema
Neuro: Awake, Alert, Oriented and AO x 3
Psych: Calm
[2024-06-13] MEDS: HURRICAINE SPRAY 1 APPLIC TOPICAL (11:53)
--- NOTE | 2024-06-13 11:55 | PTCARENOTE ---
Surgery at bedside, successfully placed NGT to [facility]. Initial output of 700ml.
[2024-06-13] MEDS: MERREM 500 MG IV ×3 (13:17→23:54)
[2024-06-13] MEDS: STERILE WATER FOR INJECTION 10 ML IV ×3 (13:17→23:54)
[2024-06-13 13:48] LABS: Lactic Acid 1.7 mmol/L (0.7-2.0)
[2024-06-13 13:58] LABS: NT-proBNP 2840 pg/ml
[2024-06-13] MEDS: LASIX 20 MG IV (15:33)
--- NOTE | 2024-06-13 15:47 | W.PN.GS2 ---
Today's Communication / Plan
-
NGT/NPO
Assessment / Plan
-
88 yo male presenting with acute cholecystitis in rapid afib
POD #2 RAL cholecystectomy with gangrenous/necrotic gallbladder with purulent drainage encountered
Afebrile with tachycardia.
YULISSA with nonbilious SSF
+belching/distention, XR consistent with adynamic ileus
Placed a 16fr [place] sump NGT successfully at bedside and placed to suction with immediate return of 800ml of gastric contents
--NGT to suction, NPO with ice chips. Would recommend changing necessary PO meds to IV
--C/W YULISSA, will likely be able to remove prior to d/c
--C/W ABX, anticipate 5-7 day total course
--Analgesics/antiemetics prn
--OOB as tolerated
--VTE ppx with sq lovenox and SCDs
Hold full dose anticoagulation for 48-72 hours post surgery
Subjective Data
-
Date of Service: June 13, 2024
Patient seen and examined at bedside with Dr. Tavera around 1130am. NGT was attempted prior to exam which induced vomiting, nursing staff unable to place. Belching with abdominal distention. Not passing flatus.
Objective Data
-
Intake and Output
06/12/24 06/13/24 06/14/24
06:59 06:59 06:59
Intake Total 960 / 960 200 / 200
Output Total 1450 / 1450 985 / 985 960 / 960
Balance -490 / -490 -785 / -785 -960 / -960
Intake:
Oral fluids 960 / 960
IV piggybacks 200 / 200
Output:
Drain Output (Total) 40 / 40 60 / 60 260 / 260
Left Jai-Mercer 40 / 40 60 / 60 260 / 260
Gastrointestinal tube output ( 700 / 700
Total)
[place] Sump 700 / 700
Urine, Voided 1410 / 1410 925 / 925
Vital Signs
Temp Pulse Resp BP Pulse Ox
97.6 F 103 22 141/76 95
06/13/24 15:00 06/13/24 14:00 06/13/24 14:00 06/13/24 14:00 06/13/24 14:00
Lab Results
06/13/24 05:28
06/13/24 05:28
Calcium 8.6 mg/dl (8.4-10.2) 06/13/24 05:28
Total Bilirubin 1.6 mg/dl (0.2-1.3) H 06/13/24 05:28
Direct Bilirubin 0.3 mg/dl (0.0-0.4) 06/11/24 03:26
AST 32 U/L (17-59) 06/13/24 05:28
ALT 36 U/L (0-50) 06/13/24 05:28
Alkaline Phosphatase 74 U/L (38-126) 06/13/24 05:28
Total Protein 6.0 g/dl (6.3-8.2) L 06/13/24 05:28
Albumin 3.2 g/dl (3.5-5.0) L 06/13/24 05:28
Physical Exam
-
NAD, Ox3
ABD soft, distended, tender at incision sites
Incisions clear, dry, well approximated with intact glue
YULISSA with nonbilious SSF
[2024-06-13] MEDS: LOPRESSOR 5 MG IV (20:28)
[2024-06-13] MEDS: LOPRESSOR PO (20:29)
[2024-06-13] MEDS: FLOMAX PO (23:36)
[2024-06-14] VITALS (19 sets, daily range): BP systolic 125–166; BP diastolic 69–99; BMI 27.3
--- NOTE | 2024-06-14 00:09 | PTCARENOTE ---
Pt received from previous RN. Pt AAOx3, forgetful at times, often ask's why he cannot eat and drink at this time. NPO order explained to Pt. Mouth care provided, swabs and few chips per pt toleration of them. no nausea at this time. NGT in left nare
to low intermittent suction per order. left YULISSA emptied for 90 cc serosang output. satting 95% on 4L. HR 110-120's, remains afib on monitor. Assessment as documented. Call light in reach.
[2024-06-14 05:10] LABS: % Basophils 0.3 % (0-2); % Eosinophils 0.2 % (0-6); % Immature Granulocytes 1.8 % (0-0.5); % Lymphocytes 8.9 % (20.5-51.1); % Monocytes 12.8 % (1.7-9.3); Absolute Immature Granulocytes 0.2 10^3/uL (0-0.05); Absolute Lymphocytes 1.1 10^3/uL (1.2-3.4); Absolute Monocytes 1.5 10^3/uL (0.1-0.6); Absolute Neutrophils 9.1 10^3/uL (1.4-6.5); Hematocrit 47.1 % (39.0-52.0); Hemoglobin 14.8 g/dL (13.0-18.0); Mean Corp Hgb Conc. 31.4 g/dL (33.0-37.0); Mean Corpuscular Hgb 26.9 pg (27.0-31.0); Mean Corpuscular Volume 85.6 fL (80.0-94.0); Mean Platelet Volume 10.2 fL (7.4-10.4); Nucleated Red Blood Cells % 0 % (-); Platelet Count 252 10^3/uL (130-400); Red Cell Dist. Width 13.5 % (11.5-14.5); White Blood Cell Count 11.9 10^3/uL (4.8-10.8)
[2024-06-14 05:26] LABS: ALT (SGPT) 29 U/L (0-50); AST (SGOT) 23 U/L (17-59); Albumin 3.1 g/dl (3.5-5.0); Alkaline Phosphatase 74 U/L (38-126); Blood Urea Nitrogen 42 mg/dl (9-20); Calcium 8.5 mg/dl (8.4-10.2); Carbon Dioxide 30 mmol/L (22-30); Chloride 103 mmol/L (98-107); Estimated Creatinine Clearance 57 ml/min; Glucose 186 mg/dl (70-99); Magnesium 2.5 mg/dl (1.6-2.3); Potassium 4.4 mmol/L (3.5-5.1); Sodium 140 mmol/L (135-145); Total Bilirubin 1.5 mg/dl (0.2-1.3); Total Protein 5.8 g/dl (6.3-8.2); eGFR > 60.00
[2024-06-14] MEDS: STERILE WATER FOR INJECTION 10 ML IV ×3 (06:02→17:53)
[2024-06-14] MEDS: MERREM 500 MG IV ×3 (06:02→17:53)
[2024-06-14] MEDS: NSS (PRESERVATIVE FREE) 10 ML IV (09:06)
[2024-06-14] MEDS: PROTONIX IV 40 MG IV (09:06)
[2024-06-14] MEDS: PROSCAR 5 MG PO (09:06)
[2024-06-14] MEDS: LR 1000 IV ×2 (09:16→17:52)
--- NOTE | 2024-06-14 09:55 | W.PN.CARDCBS ---
Addendum entered and electronically signed by Neva Cartagena DO 06/14/24 10:28:
I saw and examined the patient.
The Sample Tailor's note was reviewed and I agree with the note.
Comment: Patient seen and examined. Remains n.p.o. with NG tube but pain is better. Plan to increase activity getting him out of bed to chair per nursing.
General: NG tube in place. Awake alert and orient x 3
Heart: Regular, positive S1/S2, no murmur
Lungs: CTA b/l, negative wheezes/rales/rhonchi
Abd: Distended, YULISSA drain. Surgical dressings. Decreased bowel sounds
Ext: No edema
Neuro: nonfocal
Plan:
Acute cholecystitis
s/p Robot assisted laparoscopic cholecystectomy 06/11/24 complicated by postop ileus
Maintain NG tube/n.p.o. status per general surgery
IV antibiotics
Wound care
Increase activity. Discussed with nursing starting incentive spirometry
Atrial fibrillation with rapid ventricular response currently in sinus rhythm
-Check twelve-lead EKG
-Echocardiogram once he has further recovered from surgery
-Eventual anticoagulation once cleared by surgery
Will follow with you
Original Note:
Today's Communication / Plan
-
Back in sinus rhythm
Consider anticoagulation within the next 24 hours
Continue Lopressor
Check echo
Continue antibiotics per surgery
Impression / Plan
-
PCP: Jn Rouse
Adult School Counselor: Dr. Rodriguez, last seen in 2019
Impression:
Presented 06/10/2024 with abdominal pain, belching, heartburn
Acute cholecystitis
s/p Robot assisted laparoscopic cholecystectomy 06/11/24Leukocytosis
Atrial fibrillation with rapid ventricular response
SVT, ablation 2016
Hypertension
Hyperlipidemia
Type 2 diabetes
Syncope
Tobacco abuse/COPD
Bladder cancer status post TURBT x 2 and chemo
GERD
Dementia
Echo 02/24/19: EF 60%, mild conc lvh, mild prolapse of posterior leaflet with mild-mod mr, mild ai�������
Fady mibi 02/2019: fixed inferior defect
Plan:
Presented 06/10/2024 with abdominal pain, belching, heartburn with leukocytosis and found to acute cholecystitis on CT.
-s/p Robotic assisted laparoscopic cholecystectomy 06/11/2024 with indwelling YULISSA drain, surgery following
-Developed postop adynamic ileus NG tube remains in place
-Continue IV antibiotics per surgery and primary service
New onset atrial fibrillation with rapid ventricular response. Initially on diltiazem drip however this was discontinued 06/11/24.
-Spontaneously converted to sinus rhythm on the morning of 06/14/2024. Patient continues to have paroxysms of atrial fibrillation as well as PVCs noted on telemetry
-Continue Lopressor 50 mg twice a day (new this admission). Continue to monitor and trend response and treat pain
-Will need eventual anticoagulation once cleared surgery, they are recommending holding anticoagulation for 48-72 hours post surgery, still has YULISSA drain in NG tube
-Echo in 2019 with preserved ejection fraction with mild to moderate MR and mild AI.
-Lexiscan stress test 2018 showed fixed inferior defect. Troponin negative on admission.
- Would check echo once patient stable from surgical/GI standpoint
HPI
Patient is an 88-year-old male with past medical history significant for SVT, hypertension, hyperlipidemia, DM, syncope, tobacco abuse/COPD, bladder cancer status post TURBT x 2 and chemo, GERD and dementia who presented to emergency department
06/10/2024 with complaints of ongoing intermittent abdominal pain, belching, heartburn worse after eating spicy foods. Symptoms improved with Tums or Pepcid. On presentation patient found to be tachycardic and tachypneic as well as a leukocytosis.
Concerns for acute cholecystitis on CT of abdomen and surgery has been consulted. ECG showed atrial fibrillation with rapid ventricular response which was new diagnosis. Troponin 0.015. Patient was placed on IV antibiotics and IV Cardizem drip.
Cardiology being asked to see patient given atrial fibrillation.
Talked with who helps to provide history. She reports her is generally active and walks a dog. He does some chores around the house and can go up and down the steps without having to stop. He has not complained of any chest pain or
palpitations to her.
Progress Note - Adult School Counselor
Subjective
Date of Service: June 14, 2024
Patient seen and examined. Patient lying in bed. Still with some abdominal discomfort. YULISSA in NG tube in place
Objective
Labs:
06/14/24 04:38
06/14/24 04:38
Labs
Hgb 14.8 g/dL (13.0-18.0) 06/14/24 04:38
Hct 47.1 % (39.0-52.0) 06/14/24 04:38
Plt Count 252 10^3/uL (130-400) D 06/14/24 04:38
Sodium 140 mmol/L (135-145) 06/14/24 04:38
Potassium 4.4 mmol/L (3.5-5.1) 06/14/24 04:38
BUN 42 mg/dl (9-20) H 06/14/24 04:38
Creatinine 1.1 mg/dL (0.7-1.3) 06/14/24 04:38
Glucose 186 mg/dl (70-99) H 06/14/24 04:38
Vital Signs and I&O:
Vital Signs
Temp Pulse Resp BP Pulse Ox
97.7 F 79 18 157/76 94
06/14/24 07:11 06/14/24 07:00 06/14/24 07:00 06/14/24 06:00 06/14/24 07:00
Vital Signs
Temp Pulse Resp BP Pulse Ox
97.7 F 79 18 157/76 94
06/14/24 07:11 06/14/24 07:00 06/14/24 07:00 06/14/24 06:00 06/14/24 07:00
Intake & Output
06/12/24 06/13/24 06/14/24 06/15/24
06:59 06:59 06:59 06:59
Intake Total 960 / 960 200 / 200
Output Total 1450 / 1450 985 / 985 3120 / 3120
Balance -490 / -490 -785 / -785 -3120 / -3120
Physical Exam
Physical Exam
GEN: Appears uncomfortable, awake, Ox3 lying in bed
HEENT: supple, anicteric, mmm, NG tube in place
LUNGS: Mildly decreased at bases CTA, no wheezes/rales
CV: Irregularly irregular, S1/S2, 1/6 syst murmur apex
ABD: Mildly distended, tender, indwelling YULISSA drain
EXT: No edema clubbing or cyanosis
NEURO: Gross non-focal
SKIN: No rash, warm, dry, pink
--- NOTE | 2024-06-14 10:11 | W.PN.GS2 ---
Today's Communication / Plan
-
NGT/NPO
Assessment / Plan
-
88 yo male presenting with acute cholecystitis in rapid afib
POD #3 RAL cholecystectomy with gangrenous/necrotic gallbladder with purulent drainage encountered
Afebrile, tachycardia resolved. BP stable
YULISSA with nonbilious SSF
NGT placed on 06/13, initially with high outputs but decreased overnight, starting to pass some flatus
--NGT to suction, NPO with ice chips
--C/W YULISSA, will likely be able to remove prior to d/c
--C/W ABX, anticipate 5-7 day total course
--Analgesics/antiemetics prn
--OOB as tolerated
--VTE ppx with sq lovenox and SCDs
If full dose AC is needed, ok from surgery standpoint to start IV heparin with no bolus, but would hold off on oral agents until good bowel recovery
Subjective Data
-
Date of Service: June 14, 2024
Patient seen and examined at bedside with Dr. Ragsdale. Passing a little gas. Denies n/v. Some belching with NGT clamped for med. Pain improving.
Objective Data
-
Intake and Output
06/13/24 06/14/24 06/15/24
06:59 06:59 06:59
Intake Total 200 / 200
Output Total 985 / 985 3120 / 3120
Balance -785 / -785 -3120 / -3120
Intake:
IV piggybacks 200 / 200
Output:
Drain Output (Total) 60 / 60 470 / 470
Left Jai-Mercer 60 / 60 470 / 470
Gastrointestinal tube output ( 2049
Total)
[place] Sump 2049
Urine, Voided 925 / 925 600 / 600
Vital Signs
Temp Pulse Resp BP Pulse Ox
97.7 F 79 18 157/76 94
06/14/24 07:11 06/14/24 07:00 06/14/24 07:00 06/14/24 06:00 06/14/24 07:00
Lab Results
06/14/24 04:38
06/14/24 04:38
Calcium 8.5 mg/dl (8.4-10.2) 06/14/24 04:38
Magnesium 2.5 mg/dl (1.6-2.3) H 06/14/24 04:38
Total Bilirubin 1.5 mg/dl (0.2-1.3) H 06/14/24 04:38
Direct Bilirubin 0.3 mg/dl (0.0-0.4) 06/11/24 03:26
AST 23 U/L (17-59) 06/14/24 04:38
ALT 29 U/L (0-50) 06/14/24 04:38
Alkaline Phosphatase 74 U/L (38-126) 06/14/24 04:38
Total Protein 5.8 g/dl (6.3-8.2) L 06/14/24 04:38
Albumin 3.1 g/dl (3.5-5.0) L 06/14/24 04:38
Physical Exam
-
NAD, Ox3
ABD soft, distended, tender at incision sites, NGT with bile tinged outputs
Incisions clear, dry, well approximated with intact glue
YULISSA with nonbilious SSF
--- NOTE | 2024-06-14 11:17 | W.PN.HOSP.TC ---
Today's Communication/Plan
-
hep gtt w/o bolus
IVF
IV abx
monitor NGT output
ECHO pending
Assessment / Plan
Assessment / Plan
88yo M with dementia, BPH, HFpEF, moderate MR brought with days of abdominal pain found acute cholecystitis with Afib with RVR. S/P cholecytectomy on 06/12/24. HR improved but postOP complicated with ileus and abd distension
A/P:
#New onset Afib with RVR
2/2 infection
HR well controlled
po lopressor
cardio consult
Start hep gtt as cleared by GS w/o bolus
now in NSR
ECHO pending
#Acute gangrenous suppurative cholecystitis
#Bilirubinemia 2/2 above, cannot exclude choledocholithiasis
Zosyn switched to Merrem on 06/13/24 since patient appears in distress from abd distension
follow LFT
GenSx: s/p lap [place] on 06/12/24, purulent fluid in gall bladder
#Acute hypoxic respiratory 2/2 abdominal distension
wean off O2 as possible
#Abdominal distension with ileus
concern for obstruction
NPO, NGT
monitor NGT output
IVF started
#BPH
watch for retention, follow labs
DVT ppx SCDs/hep gtt
Anticipated Discharge: > 48 hours
Subjective/Interval History
-
Date of Service: June 14, 2024
states passing some flatulence
remains w/ NGT output
Objective Data
-
Labs:
Laboratory Results
06/14/24
04:38
WBC 11.9 H
Hgb 14.8
Hct 47.1
Plt Count 252 D
Sodium 140
Potassium 4.4
Chloride 103
Carbon Dioxide 30
BUN 42 H
Creatinine 1.1
Glucose 186 H
Calcium 8.5
Total Bilirubin 1.5 H
AST 23
ALT 29
Alkaline Phosphatase 74
Vital Signs:
Vital Signs
Temp Pulse Resp BP Pulse Ox
97.7 F 77 20 163/87 93
06/14/24 07:11 06/14/24 10:00 06/14/24 10:00 06/14/24 10:00 06/14/24 10:00
I&O
06/13/24 06/14/24 06/15/24
06:59 06:59 06:59
Intake Total 200 / 200
Output Total 985 / 985 3120 / 3120
Balance -785 / -785 -3120 / -3120
Physical Exam
-
General: Well Developed, Well Nourished, No Apparent Distress and Comfortable
HEENT: Normocephalic, Atraumatic and Other (dry mucous membranes)
Respiratory: Clear to Auscultation
Cardiac: S1/S2 and Irregular Rhythm
GI: Tender, Distended and Other (YULISSA drain noted. surgical scar mild erythema but no drainage. )
Musculoskeletal: No Clubbing, No Cyanosis and No Edema
Neuro: Awake, Alert, Oriented and AO x 3
Psych: Calm
Data Reviewed
-
Total Time Spent with Patient (in minutes): 55
[2024-06-14 12:14] LABS: APTT 31.4 Sec (23.4-35.0)
[2024-06-14] MEDS: HEPARIN 25000 UNITS/250 ML IV (12:15)
[2024-06-14] MEDS: TYLENOL 1000 MG PO (13:43)
[2024-06-14] MEDS: DILAUDID 0.5 MG IV ×2 (15:31→22:21)
--- NOTE | 2024-06-14 17:47 | CM ---
Patient with Hx dementia with Dx cholecystitis s/p lap [place], New onset Afib with RVR. O2 4L. NPO/NGT/IVF. Receiving Heparin gtt, IV Abx. YULISSA drain. Per nurse assessment; confused at times, forgetful.
Message sent to Dr Espinosa; not sure this patient is mobilizing very well. He may benefit from seeing PT.
Plan follow patient's diet, O2 needs, mobility.
Plan follow up after seen by PT.
--- NOTE | 2024-06-14 18:11 | PTCARENOTE ---
Addendum entered by Jacy Carpenter RN 06/14/24 18:16:
Arrhythmias noted on tele today - NSR had burst AF/ frequently ectopy/ Exit block on tele noted unconfirmed - EKG completed today- also ECHO completed.
Original Note:
OOB to chair today x1 hour. C/o thirst this am-NPO with NGT- IVF initiated- Tolerates clamping ngt with few po meds. IV Heparin started today as well. Tylenol x1 with out pain relief today- IV Dilaudid x1 with good relief. Lap site CDI/
YULISSA lord site CDI emptied 100ml serosang drainage. POx on RAIR 89-91% remians on 2L NC. Given IS today and demonstrated use.
[2024-06-14 19:07] LABS: APTT 41.6 Sec (23.4-35.0)
--- NOTE | 2024-06-14 21:39 | PTCARENOTE ---
Pt received from previous RN. Pt aaox3, forgetful at times. NGT in left nare to low int suction. moderate amount of output. see I&O. voiding in urinal. heparin gtt maintained per orders, see med titration intervention for details. oral care
provided. nsr on monitor, hr 60-80. sats 95% on 2L. Assessment as documented. Call light in reach.
[2024-06-15] VITALS (16 sets, daily range): BP systolic 131–195; BP diastolic 70–87; PULSE 92; O2SAT 94
[2024-06-15] MEDS: STERILE WATER FOR INJECTION 10 ML IV ×4 (00:51→17:17)
[2024-06-15] MEDS: FLOMAX 0.4 MG PO ×2 (00:51→19:54)
[2024-06-15] MEDS: MERREM 500 MG IV ×4 (00:51→17:17)
[2024-06-15 02:19] LABS: APTT 56.7 Sec (23.4-35.0)
[2024-06-15] MEDS: LR 1000 IV ×2 (04:12→14:35)
[2024-06-15 05:16] LABS: % Basophils 0.4 % (0-2); % Eosinophils 0.3 % (0-6); % Immature Granulocytes 0.8 % (0-0.5); % Monocytes 11.5 % (1.7-9.3); Absolute Immature Granulocytes 0.1 10^3/uL (0-0.05); Absolute Lymphocytes 1.1 10^3/uL (1.2-3.4); Absolute Monocytes 1.2 10^3/uL (0.1-0.6); Absolute Neutrophils 8.3 10^3/uL (1.4-6.5); Hematocrit 44.1 % (39.0-52.0); Hemoglobin 14.1 g/dL (13.0-18.0); Mean Corpuscular Hgb 27.3 pg (27.0-31.0); Mean Corpuscular Volume 85.5 fL (80.0-94.0); Mean Platelet Volume 9.8 fL (7.4-10.4); Nucleated Red Blood Cells % 0 % (-); Platelet Count 232 10^3/uL (130-400); Red Blood Cell Count 5.16 10^6/uL (4.70-6.10); Red Cell Dist. Width 13.4 % (11.5-14.5); White Blood Cell Count 10.7 10^3/uL (4.8-10.8)
[2024-06-15 05:32] LABS: ALT (SGPT) 25 U/L (0-50); AST (SGOT) 21 U/L (17-59); Albumin 2.8 g/dl (3.5-5.0); Alkaline Phosphatase 69 U/L (38-126); Blood Urea Nitrogen 37 mg/dl (9-20); Calcium 8.2 mg/dl (8.4-10.2); Carbon Dioxide 32 mmol/L (22-30); Chloride 103 mmol/L (98-107); Estimated Creatinine Clearance 63 ml/min; Glucose 165 mg/dl (70-99); Magnesium 2.5 mg/dl (1.6-2.3); Potassium 4.3 mmol/L (3.5-5.1); Sodium 140 mmol/L (135-145); Total Bilirubin 1.3 mg/dl (0.2-1.3); Total Protein 5.4 g/dl (6.3-8.2); eGFR > 60.00
[2024-06-15] MEDS: NSS (PRESERVATIVE FREE) 10 ML IV (09:05)
[2024-06-15] MEDS: PROSCAR 5 MG PO (09:05)
[2024-06-15] MEDS: PROTONIX IV 40 MG IV (09:05)
--- NOTE | 2024-06-15 09:51 | W.PN.HOSP.TC ---
Today's Communication/Plan
-
OOB/PT
IV hep
IV abx
NGT/NPO/IVF
Assessment / Plan
Assessment / Plan
88yo M with dementia, BPH, HFpEF, moderate MR brought with days of abdominal pain found acute cholecystitis with Afib with RVR. S/P cholecytectomy on 06/12/24. HR improved but postOP complicated with ileus and abd distension
A/P:
#New onset Afib with RVR
2/2 infection
HR well controlled
po lopressor
cardio consult
Start hep gtt as cleared by GS w/o bolus
now in NSR
ECHO noted
#Acute gangrenous suppurative cholecystitis
#Bilirubinemia 2/2 above, cannot exclude choledocholithiasis
Zosyn switched to Merrem on 06/13/24 since patient appears in distress from abd distension
follow LFT
GenSx: s/p lap [place] on 06/12/24, purulent fluid in gall bladder
#Acute hypoxic respiratory 2/2 abdominal distension
wean off O2 as possible
#Abdominal distension with ileus
concern for obstruction
NPO, NGT
monitor NGT output
IVF cont
#BPH
watch for retention, follow labs
DVT ppx SCDs/hep gtt
PT eval
Anticipated Discharge: > 48 hours
Subjective/Interval History
-
Date of Service: June 15, 2024
seen on commode
states passing flatulence and having bm
states of increasing thirst
Objective Data
-
Labs:
Laboratory Results
06/15/24 06/15/24 06/15/24
01:58 04:54 08:49
WBC 10.7
Hgb 14.1
Hct 44.1
Plt Count 232
APTT 56.7 H 56.0 H
Sodium 140
Potassium 4.3
Chloride 103
Carbon Dioxide 32 H
BUN 37 H
Creatinine 1.0
Glucose 165 H
Calcium 8.2 L
Total Bilirubin 1.3
AST 21
ALT 25
Alkaline Phosphatase 69
Vital Signs:
Vital Signs
Temp Pulse Resp BP Pulse Ox
97.7 F 81 20 142/73 95
06/15/24 07:05 06/15/24 07:00 06/15/24 07:00 06/15/24 07:00 06/15/24 07:00
I&O
06/14/24 06/15/24 06/16/24
06:59 06:59 06:59
Intake Total 1550 / 1550
Output Total 3120 / 3120 1860 / 1860 200 / 200
Balance -3120 / -3120 -310 / -310 -200 / -200
Physical Exam
-
General: Well Developed, Well Nourished, No Apparent Distress and Comfortable
HEENT: Normocephalic, Atraumatic and Other (dry mucous membranes)
Respiratory: Clear to Auscultation
Cardiac: S1/S2 and Irregular Rhythm
GI: Tender, Distended and Other (YULISSA drain noted. surgical scar mild erythema but no drainage. )
Musculoskeletal: No Clubbing, No Cyanosis and No Edema
Neuro: Awake, Alert, Oriented and AO x 3
Psych: Calm
Data Reviewed
-
Total Time Spent with Patient (in minutes): 55
[2024-06-15] MEDS: HEPARIN 25000 UNITS/250 ML IV (10:05)
--- NOTE | 2024-06-15 10:40 | W.PN.GS2 ---
Today's Communication / Plan
-
--NGT clap throughout the day
--OK for sips of clears around tube
Assessment / Plan
-
88 yo male presenting with acute cholecystitis in rapid afib
POD #4 RAL cholecystectomy with gangrenous/necrotic gallbladder with purulent drainage encountered
Afebrile, tachycardia resolved. BP stable
YULISSA with nonbilious SSF
NGT placed on 06/13, < 1 L, non-bilious
Discussion with nursing regarding management of NGT with options for removal versus clamp trial. Given his continued abdominal distention and impulsive nature of PO intake with likely some element of delirium/dementia underlying plan for clamp
trial throughout the day today with sips of clears around tube. Hopeful for NGT removal tomorrow.
--NGT clap throughout the day
--OK for sips of clears around tube
--C/W YULISSA, will likely be able to remove prior to d/c
--C/W ABX, anticipate 5-7 day total course
--Analgesics/antiemetics prn
--OOB as tolerated
--VTE ppx with sq lovenox and SCDs, if full dose AC is needed, ok from surgery standpoint to start IV heparin with no bolus, but would hold off on oral agents until good bowel recovery
Subjective Data
-
Date of Service: June 15, 2024
No complaints. Denies worsening abdominal pain or distention. No complaints. Denies worsening abdominal pain or distention. Patient reports that he has not passed flatus or moved his bowels, however, in discussions with his nurse he had a large
normal-appearing bowel movement yesterday and small more liquid stools today. Nursing reports that he is impulsive with oral intake.
Objective Data
-
Intake and Output
06/14/24 06/15/24 06/16/24
06:59 06:59 06:59
Intake Total 1550 / 1550
Output Total 3120 / 3120 1860 / 1860 350 / 350
Balance -3120 / -3120 -310 / -310 -350 / -350
Intake:
Oral fluids 400 / 400
IV fluids (Total) 1000 / 1000
Amount instilled into GI Tube ( 150 / 150
Total)
[place] Sump 150 / 150
Output:
Liquid stool amount 150 / 150
Rectum 150 / 150
Drain Output (Total) 470 / 470 210 / 210
Left Jai-Mercer 470 / 470 210 / 210
Gastrointestinal tube output ( 2049 500 / 500
Total)
[place] Sump 2049 500 / 500
Urine, Voided 600 / 600 1150 / 1150 200 / 200
Vital Signs
Temp Pulse Resp BP Pulse Ox
97.7 F 81 20 142/73 95
06/15/24 07:05 06/15/24 07:00 06/15/24 07:00 06/15/24 07:00 06/15/24 07:00
Lab Results
06/15/24 04:54
06/15/24 04:54
Calcium 8.2 mg/dl (8.4-10.2) L 06/15/24 04:54
Magnesium 2.5 mg/dl (1.6-2.3) H 06/15/24 04:54
Total Bilirubin 1.3 mg/dl (0.2-1.3) 06/15/24 04:54
Direct Bilirubin 0.3 mg/dl (0.0-0.4) 06/11/24 03:26
AST 21 U/L (17-59) 06/15/24 04:54
ALT 25 U/L (0-50) 06/15/24 04:54
Alkaline Phosphatase 69 U/L (38-126) 06/15/24 04:54
Total Protein 5.4 g/dl (6.3-8.2) L 04/08/25 04:54
Albumin 2.8 g/dl (3.5-5.0) L 06/15/24 04:54
Physical Exam
-
Gen: NAD
Abd: soft, NT, distended, tympanitic, non-peritoneal, incisions c/d/i - no erythema, ecchymosis or drainage, YULISSA serosang
Patient has a alejandro catheter: No
Patient has a central line: No
[2024-06-15] MEDS: TYLENOL 1000 MG PO (12:50)
--- NOTE | 2024-06-15 13:04 | W.PN.CARDCBS ---
Addendum entered and electronically signed by Brijesh Kim DO 06/15/24 14:24:
I saw and examined the patient.
The Oil And Gas Lease Pumper's note was reviewed and I agree with the note.
Comment:
Plan:
Presented with abd pain and underwent robot assisted laparoscopic cholecystectomy 06/11/24 complicated by post op ileus
Remains with NGT with management as per gen surgery
He had A-fib with RVR earlier in admission, spontaneously converted 06/14 and remains in sinus rhythm with PVCs at this time
-Continue Lopressor
Start IV heparin as he is now ok to start as per surgery. Resume oral anticoagulation once able to take POs and bowel function improved.
Discussed with nursing.
- Will arrange outpatient cardiac follow-up
Original Note:
Today's Communication / Plan
-
start IV heparin
continue lopressor
continue post op care
Impression / Plan
-
PCP: Jn Rouse
Studio Model: Dr. Rodriguez, last seen in 2019
Impression:
Presented 06/10/2024 with abdominal pain, belching, heartburn
Acute cholecystitis
s/p Robot assisted laparoscopic cholecystectomy 06/11/24Leukocytosis
Atrial fibrillation with rapid ventricular response
SVT, ablation 2016
Hypertension
Hyperlipidemia
Type 2 diabetes
Syncope
Tobacco abuse/COPD
Bladder cancer status post TURBT x 2 and chemo
GERD
Dementia
Echo 02/24/19: EF 60%, mild conc lvh, mild prolapse of posterior leaflet with mild-mod mr, mild ai�������
Fady mibi 02/2019: fixed inferior defect
ECHO 06/14/24: TDS, EF 55-60%, dilated RV, mild MR, mild TR, mild eccentric AR, PAP 29 mmHg, no significant pericardial effusion, aortic root appears mildly dilated
Plan:
- patient presented with abd pain and underwent robot assisted laparoscopic cholecystectomy 06/11/24 complicated by post op ileus
- remains with NGT in place. continue treatment per primary service and gen surgery
- He had A-fib with RVR earlier in admission, spontaneously converted 06/14 and remains in sinus rhythm with PVCs at this time
- Continue Lopressor
- Echocardiogram 06/14/24 with results as above
- He is okay for IV heparin per surgery today, however would not start on p.o. anticoagulation until bowel function returns
- Will arrange outpatient cardiac follow-up
HPI
Patient is an 88-year-old male with past medical history significant for SVT, hypertension, hyperlipidemia, DM, syncope, tobacco abuse/COPD, bladder cancer status post TURBT x 2 and chemo, GERD and dementia who presented to emergency department
06/10/2024 with complaints of ongoing intermittent abdominal pain, belching, heartburn worse after eating spicy foods. Symptoms improved with Tums or Pepcid. On presentation patient found to be tachycardic and tachypneic as well as a leukocytosis.
Concerns for acute cholecystitis on CT of abdomen and surgery has been consulted. ECG showed atrial fibrillation with rapid ventricular response which was new diagnosis. Troponin 0.015. Patient was placed on IV antibiotics and IV Cardizem drip.
Cardiology being asked to see patient given atrial fibrillation.
Talked with who helps to provide history. She reports her is generally active and walks a dog. He does some chores around the house and can go up and down the steps without having to stop. He has not complained of any chest pain or
palpitations to her.
Progress Note - Studio Model
Subjective
Date of Service: June 15, 2024
no complaints
Objective
Labs:
06/15/24 04:54
06/15/24 04:54
Labs
Hgb 14.1 g/dL (13.0-18.0) 06/15/24 04:54
Hct 44.1 % (39.0-52.0) 06/15/24 04:54
Plt Count 232 10^3/uL (130-400) 06/15/24 04:54
APTT 56.0 Sec (23.4-35.0) H 06/15/24 08:49
Sodium 140 mmol/L (135-145) 06/15/24 04:54
Potassium 4.3 mmol/L (3.5-5.1) 06/15/24 04:54
BUN 37 mg/dl (9-20) H 06/15/24 04:54
Creatinine 1.0 mg/dL (0.7-1.3) 06/15/24 04:54
Glucose 165 mg/dl (70-99) H 06/15/24 04:54
Vital Signs and I&O:
Vital Signs
Temp Pulse Resp BP Pulse Ox
97.7 F 87 16 150/81 95
06/15/24 07:05 06/15/24 12:00 06/15/24 12:00 06/15/24 08:00 06/15/24 08:00
Vital Signs
Temp Pulse Resp BP Pulse Ox
97.7 F 87 16 150/81 95
06/15/24 07:05 06/15/24 12:00 06/15/24 12:00 06/15/24 08:00 06/15/24 08:00
Intake & Output
06/13/24 06/14/24 06/15/24 06/16/24
07:59 07:59 07:59 07:59
Intake Total 200 / 200 1550 / 1550
Output Total 785 / 785 3120 / 3120 2059 / 2059 150 / 150
Balance -585 / -585 -3120 / -3120 -510 / -510 -150 / -150
[2024-06-15] MEDS: MORPHINE SULFATE 1 MG IV (14:33)
[2024-06-15] MEDS: ROXICODONE 5 MG PO (16:37)
[2024-06-15 16:44] LABS: APTT 88.6 Sec (23.4-35.0)
--- NOTE | 2024-06-15 18:36 | PTCARENOTE ---
OOB all day, c/o pain abdomen- Tylenol, IV Morphine and 1 Roxycodone given this shift with variable relief. NGT clamped since 10am- Denies n/v tolerating generous sips of water/ice. 1 watery bm mixed with urine today. Hypoactive bsx4. Lap sites
x3 cdi - YULISSA on left side emptied 120ml serosang. Still feels 'dehydrated' IVF infusing, IV Heparin gtt per protocol- last PTT therapeutic.
--- NOTE | 2024-06-15 21:45 | PTCARENOTE ---
Patient is very forgetful. Requesting more water at change of shift while rounding. Encouraged pt to slow down on the oral fluids as abdomen is firm, round and distended. Ice chips provided. pt denies any nausea/vomiting. NGT clamped. Swallowed his
pill w/o issues. Loud/ tinkling bowel sounds in all quadrants except LLQ is hypoactive. Reports 3/10 pain to abd. YULISSA drain site intact. Lap sites CDI. Heparin gtt titrated per the worklist. LR @ 100mL/hr. SCDs on. Encouraged to reposition self while
in bed to prevent skin breakdown. Call duran and tray table within reach.
[2024-06-15 22:28] LABS: APTT 116.4 Sec (23.4-35.0)
[2024-06-16] VITALS (12 sets, daily range): BP systolic 130–151; BP diastolic 63–77
[2024-06-16] MEDS: MERREM 500 MG IV ×4 (00:23→18:15)
[2024-06-16] MEDS: STERILE WATER FOR INJECTION 10 ML IV ×4 (00:24→18:15)
[2024-06-16] MEDS: LR 1000 IV ×3 (00:32→22:48)
[2024-06-16] MEDS: HEPARIN 25000 UNITS/250 ML IV ×2 (01:59→20:05)
[2024-06-16 05:15] LABS: APTT 120.3 Sec (23.4-35.0)
[2024-06-16 05:52] LABS: Hematocrit 41.8 % (39.0-52.0); Hemoglobin 13.4 g/dL (13.0-18.0); Mean Corp Hgb Conc. 32.1 g/dL (33.0-37.0); Mean Corpuscular Hgb 27.2 pg (27.0-31.0); Mean Platelet Volume 9.6 fL (7.4-10.4); Platelet Count 207 10^3/uL (130-400); Red Blood Cell Count 4.92 10^6/uL (4.70-6.10); Red Cell Dist. Width 13.6 % (11.5-14.5); White Blood Cell Count 13.4 10^3/uL (4.8-10.8)
[2024-06-16 05:58] LABS: ALT (SGPT) 23 U/L (0-50); AST (SGOT) 27 U/L (17-59); Albumin 2.6 g/dl (3.5-5.0); Alkaline Phosphatase 61 U/L (38-126); Blood Urea Nitrogen 29 mg/dl (9-20); Calcium 8.1 mg/dl (8.4-10.2); Carbon Dioxide 28 mmol/L (22-30); Chloride 104 mmol/L (98-107); Estimated Creatinine Clearance 90 ml/min; Glucose 139 mg/dl (70-99); Magnesium 2.2 mg/dl (1.6-2.3); Potassium 4.3 mmol/L (3.5-5.1); Sodium 137 mmol/L (135-145); Total Bilirubin 1.3 mg/dl (0.2-1.3); Total Protein 5.1 g/dl (6.3-8.2); eGFR > 60.00
--- NOTE | 2024-06-16 08:33 | W.PN.CARDCBS ---
Addendum entered and electronically signed by Brijesh Kim DO 06/16/24 10:12:
I saw and examined the patient.
The Pil[employer] Coordinator's note was reviewed and I agree with the note.
Comment:
Plan:
Remains sinus rhythm on telemetry.
Continue IV heparin with transition to oral anticoagulation once patient has bowel recovery. He is tolerating sips of clears.
EF is preserved by recent echo.
Continue Lopressor, heart rate and blood pressure currently adequate.
Outpatient cardiac follow-up will be scheduled.
Discussed with nursing.
Original Note:
Today's Communication / Plan
-
follow on tele
in SR
continue lopressor, IV heparin
continue post op care
Impression / Plan
-
PCP: Jn Rouse
Greenhouse Technician: Dr. Rodriguez, last seen in 2019
Impression:
Presented 06/10/2024 with abdominal pain, belching, heartburn
Acute cholecystitis
s/p Robot assisted laparoscopic cholecystectomy 06/11/24
Leukocytosis
Atrial fibrillation with rapid ventricular response s/p spontaneous conversion to SR 06/14
SVT, ablation 2016
Hypertension
Hyperlipidemia
Type 2 diabetes
Syncope
Tobacco abuse/COPD
Bladder cancer status post TURBT x 2 and chemo
GERD
Dementia
Echo 02/24/19: EF 60%, mild conc lvh, mild prolapse of posterior leaflet with mild-mod mr, mild ai�������
Fady mibi 02/2019: fixed inferior defect
ECHO 06/14/24: TDS, EF 55-60%, dilated RV, mild MR, mild TR, mild eccentric AR, PAP 29 mmHg, no significant pericardial effusion, aortic root appears mildly dilated
Plan:
- patient presented with abd pain and underwent robot assisted laparoscopic cholecystectomy 06/11/24 complicated by post op ileus
- remains with NGT in place. continue treatment per primary service and gen surgery. he is tolerating sips of clears
- He had A-fib with RVR earlier in admission, spontaneously converted 06/14 and remains in sinus rhythm with PVCs at this time. also with brief episode of 2:1 av block overnight while sleeping, asymptomatic. will follow
- Currently on lopressor 50mg BID, may need to decrease
- Echocardiogram 06/14/24 with results as above
- started on IV heparin 06/15, however would not start on p.o. anticoagulation until bowel function returns per surgery
- Will arrange outpatient cardiac follow-up
HPI:
Patient is an 88-year-old male with past medical history significant for SVT, hypertension, hyperlipidemia, DM, syncope, tobacco abuse/COPD, bladder cancer status post TURBT x 2 and chemo, GERD and dementia who presented to emergency department
06/10/2024 with complaints of ongoing intermittent abdominal pain, belching, heartburn worse after eating spicy foods. Symptoms improved with Tums or Pepcid. On presentation patient found to be tachycardic and tachypneic as well as a leukocytosis.
Concerns for acute cholecystitis on CT of abdomen and surgery has been consulted. ECG showed atrial fibrillation with rapid ventricular response which was new diagnosis. Troponin 0.015. Patient was placed on IV antibiotics and IV Cardizem drip.
Cardiology being asked to see patient given atrial fibrillation.
Talked with who helps to provide history. She reports her is generally active and walks a dog. He does some chores around the house and can go up and down the steps without having to stop. He has not complained of any chest pain or
palpitations to her.
Progress Note - Greenhouse Technician
Subjective
Date of Service: June 16, 2024
reports abd soreness. tolerating sips of liquids. no CP, SOB
Objective
Labs:
06/16/24 05:27
06/16/24 05:18
Labs
Hgb 13.4 g/dL (13.0-18.0) 06/16/24 05:27
Hct 41.8 % (39.0-52.0) 06/16/24 05:27
Plt Count 207 10^3/uL (130-400) 06/16/24 05:27
APTT 120.3 Sec (23.4-35.0) H 06/16/24 04:40
Sodium 137 mmol/L (135-145) 06/16/24 05:18
Potassium 4.3 mmol/L (3.5-5.1) 06/16/24 05:18
BUN 29 mg/dl (9-20) H 06/16/24 05:18
Creatinine 0.7 mg/dL (0.7-1.3) 06/16/24 05:18
Glucose 139 mg/dl (70-99) H 06/16/24 05:18
Vital Signs and I&O:
Vital Signs
Temp Pulse Resp BP Pulse Ox
98.2 F 75 20 141/69 94
06/16/24 07:08 06/16/24 07:08 06/16/24 07:08 06/16/24 07:08 06/16/24 07:08
Vital Signs
Temp Pulse Resp BP Pulse Ox
98.2 F 75 20 141/69 94
06/16/24 07:08 06/16/24 07:08 06/16/24 07:08 06/16/24 07:08 06/16/24 07:08
Intake & Output
06/14/24 06/15/24 06/16/24 06/17/24
07:59 07:59 07:59 07:59
Intake Total 1550 / 1550 2520 / 2520
Output Total 3120 / 3120 2060 / 2060 2185 / 2185
Balance -3120 / -3120 -510 / -510 335 / 335
Physical Exam
Physical Exam
GEN: No distress, awake, alert
HEENT: supple, anicteric, mmm, eomi. NGT in place
LUNGS: CTA B/L, no wheezes/rales
CV: Reg, S1/S2, no murmur
ABD: soft, BS+, mildly distended
EXT: No cyanosis, clubbing. trace edema of B/L LE
NEURO: Gross non-focal
SKIN: Warm, pink, dry. No rash
[2024-06-16] MEDS: NSS (PRESERVATIVE FREE) 10 ML IV (08:35)
[2024-06-16] MEDS: PROSCAR 5 MG PO (08:35)
[2024-06-16] MEDS: PROTONIX IV 40 MG IV (08:35)
--- NOTE | 2024-06-16 11:50 | W.PN.HOSP.TC ---
Today's Communication/Plan
-
GS recs
NGT clamped
IVF while NPO
Okay for meds
IV hep
IV abx
Assessment / Plan
Assessment / Plan
88yo M with dementia, BPH, HFpEF, moderate MR brought with days of abdominal pain found acute cholecystitis with Afib with RVR. S/P cholecytectomy on 06/12/24. HR improved but postOP complicated with ileus and abd distension
A/P:
#New onset Afib with RVR
2/2 infection
HR well controlled
po lopressor -per GS okay for meds
cardio consult
Start hep gtt as cleared by GS w/o bolus
now in NSR
ECHO noted
#Acute gangrenous suppurative cholecystitis
#Bilirubinemia 2/2 above, cannot exclude choledocholithiasis
Zosyn switched to Merrem on 06/13/24 since patient appears in distress from abd distension
follow LFT
GenSx: s/p lap [place] on 06/12/24, purulent fluid in gall bladder
#Acute hypoxic respiratory 2/2 abdominal distension
wean off O2 as possible
#Abdominal distension with ileus
concern for obstruction
NPO, NGT clamped.
okay for meds.
monitor NGT output
IVF cont
#BPH
watch for retention, follow labs
DVT ppx SCDs/hep gtt
PT eval -snf vs. home HH
Anticipated Discharge: > 48 hours
Subjective/Interval History
-
Date of Service: June 16, 2024
had 2 loose bm so far
denies abd pain
denies nausea or vomiting
NGT clamped
Objective Data
-
Labs:
Laboratory Results
06/16/24 06/16/24 06/16/24
04:40 05:18 05:27
WBC 13.4 H
Hgb 13.4
Hct 41.8
Plt Count 207
APTT 120.3 H
Sodium 137
Potassium 4.3
Chloride 104
Carbon Dioxide 28
BUN 29 H
Creatinine 0.7
Glucose 139 H
Calcium 8.1 L
Total Bilirubin 1.3
AST 27
ALT 23
Alkaline Phosphatase 61
06/16/24
11:40
WBC
Hgb
Hct
Plt Count
APTT Pending
Sodium
Potassium
Chloride
Carbon Dioxide
BUN
Creatinine
Glucose
Calcium
Total Bilirubin
AST
ALT
Alkaline Phosphatase
Vital Signs:
Vital Signs
Temp Pulse Resp BP Pulse Ox
98.2 F 75 16 141/69 93
06/16/24 11:28 06/16/24 07:08 06/16/24 11:28 06/16/24 07:08 06/16/24 11:28
I&O
06/15/24 06/16/24 06/17/24
06:59 06:59 06:59
Intake Total 1550 / 1550 2520 / 2520
Output Total 1860 / 1860 2385 / 2385 200 / 200
Balance -310 / -310 135 / 135 -200 / -200
Physical Exam
-
General: Well Developed, Well Nourished, No Apparent Distress and Comfortable
HEENT: Normocephalic, Atraumatic and Other (dry mucous membranes)
Respiratory: Clear to Auscultation
Cardiac: S1/S2
GI: Tender, Distended and Other (YULISSA drain noted. surgical scar mild erythema but no drainage. )
Musculoskeletal: No Clubbing, No Cyanosis and No Edema
Neuro: Awake, Alert, Oriented and No Motor Deficits
Psych: Calm
Data Reviewed
-
Total Time Spent with Patient (in minutes): 55
--- NOTE | 2024-06-16 12:20 | W.PN.GS2 ---
Today's Communication / Plan
-
CT
Assessment / Plan
-
88 yo male presenting with acute cholecystitis in rapid afib
POD #5 RAL cholecystectomy with gangrenous/necrotic gallbladder with purulent drainage encountered
Afebrile, tachycardia resolved. BP stable
WBC trended up today after normalizing yesterday
YULISSA with nonbilious SSF
NGT placed on 06/13, < 1 L, non-bilious
CT with PO and IV contrast today to r/u abscess and assess for ileus
--NGT clap throughout the day
--OK for sips of clears around tube
--C/W YULISSA, will likely be able to remove prior to d/c
--C/W ABX, anticipate 5-7 day total course
--Analgesics/antiemetics prn
--OOB as tolerated
--On IV heparin gtt, but would hold off on oral agents until good bowel recovery
Subjective Data
-
Date of Service: June 16, 2024
Remains distended, no complaints
Objective Data
-
Intake and Output
06/15/24 06/16/24 06/17/24
06:59 06:59 06:59
Intake Total 1550 / 1550 2520 / 2520
Output Total 1860 / 1860 2385 / 2385 200 / 200
Balance -310 / -310 135 / 135 -200 / -200
Intake:
Oral fluids 400 / 400 1100 / 1100
IV fluids (Total) 1000 / 1000 1200 / 1200
IV piggybacks 160 / 160
Amount instilled into GI Tube ( 150 / 150 60 / 60
Total)
[place] Sump 150 / 150 60 / 60
Output:
Liquid stool amount 150 / 150
Rectum 150 / 150
Drain Output (Total) 210 / 210 285 / 285
Left Jai-Mercer 210 / 210 285 / 285
Gastrointestinal tube output ( 500 / 500 500 / 500
Total)
[place] Sump 500 / 500 500 / 500
Urine, Voided 1150 / 1150 1450 / 1450 200 / 200
Other:
Number of approximated MODERATE 1
amounts of urine
Number of unmeasured liquid
stools
Rectum 1
Vital Signs
Temp Pulse Resp BP Pulse Ox
98.2 F 69 16 151/66 92
06/16/24 11:28 06/16/24 10:00 06/16/24 11:28 06/16/24 10:00 06/16/24 11:58
Lab Results
06/16/24 05:27
06/16/24 05:18
Calcium 8.1 mg/dl (8.4-10.2) L 06/16/24 05:18
Magnesium 2.2 mg/dl (1.6-2.3) 06/16/24 05:18
Total Bilirubin 1.3 mg/dl (0.2-1.3) 06/16/24 05:18
Direct Bilirubin 0.3 mg/dl (0.0-0.4) 06/11/24 03:26
AST 27 U/L (17-59) 06/16/24 05:18
ALT 23 U/L (0-50) 06/16/24 05:18
Alkaline Phosphatase 61 U/L (38-126) 06/16/24 05:18
Total Protein 5.1 g/dl (6.3-8.2) L 06/16/24 05:18
Albumin 2.6 g/dl (3.5-5.0) L 06/16/24 05:18
Physical Exam
-
Gen: NAD
AbdL soft, approp ttp, incisions cdi, drain ss
[2024-06-16] MEDS: OMNIPAQUE 50 ML PO (13:08)
--- NOTE | 2024-06-16 14:00 | PTCARENOTE ---
Addendum entered by Michelle Aldrich 06/16/24 14:19:
Addition- Heparin gtt infusing per order, see intervention.
Original Note:
Pt's assessment as documented. Aox2, not time; forgetful. NSR with PVC's on tele monitor. L nare NGT remains in place but clamped. Incontinent of large liquid BM, haroldo care completed. Pt for Abd CT, drinking contrast at this time. at bedside,
updated on plan of care. Pt ringing appropriately, call duran within reach. Bed alarm in place for safety.
[2024-06-16 19:38] LABS: APTT 111.6 Sec (23.4-35.0)
[2024-06-16] MEDS: LOPRESSOR 50 MG PO (20:06)
[2024-06-16] MEDS: FLOMAX 0.4 MG PO (20:07)
--- NOTE | 2024-06-16 21:30 | PTCARENOTE ---
Patient found getting out of bed setting off the bed alarm. Able to transfer to BSC. Liquid BM. Pt had an accident on the ground and himself. linens changed, pt cleaned up. Upon cleaning pt up, YULISSA was noted to have a leak. it is not able to stay
compressed. Dressing changed and stitches intact. dressing had small amount of drainage. denies any pain. denies any nausea. Abd distended, slightly more soft than yesterday. swallowed pills w/o issues.
updated via phone...
To providers: please call to update
[2024-06-17] VITALS (14 sets, daily range): BP systolic 122–146; BP diastolic 45–97
[2024-06-17] MEDS: MERREM 500 MG IV ×4 (00:07→17:00)
[2024-06-17] MEDS: STERILE WATER FOR INJECTION 10 ML IV ×4 (00:07→17:00)
[2024-06-17 03:28] LABS: APTT 131.2 Sec (23.4-35.0)
[2024-06-17 03:36] LABS: % Basophils 0.4 % (0-2); % Eosinophils 1.1 % (0-6); % Immature Granulocytes 1.5 % (0-0.5); % Lymphocytes 9.8 % (20.5-51.1); % Neutrophils 80.2 % (42.2-75.2); Absolute Basophils 0.1 10^3/uL (0-0.2); Absolute Eosinophils 0.2 10^3/uL (0-0.7); Absolute Immature Granulocytes 0.2 10^3/uL (0-0.05); Absolute Lymphocytes 1.4 10^3/uL (1.2-3.4); Absolute Neutrophils 11.5 10^3/uL (1.4-6.5); Hematocrit 39.3 % (39.0-52.0); Mean Corp Hgb Conc. 33.1 g/dL (33.0-37.0); Mean Corpuscular Hgb 27.4 pg (27.0-31.0); Mean Corpuscular Volume 82.7 fL (80.0-94.0); Mean Platelet Volume 9.6 fL (7.4-10.4); Nucleated Red Blood Cells % 0 % (-); Platelet Count 224 10^3/uL (130-400); Red Blood Cell Count 4.75 10^6/uL (4.70-6.10); Red Cell Dist. Width 13.4 % (11.5-14.5); White Blood Cell Count 14.2 10^3/uL (4.8-10.8)
[2024-06-17 03:53] LABS: ALT (SGPT) 27 U/L (0-50); AST (SGOT) 32 U/L (17-59); Albumin 2.6 g/dl (3.5-5.0); Alkaline Phosphatase 65 U/L (38-126); Blood Urea Nitrogen 21 mg/dl (9-20); Calcium 8.1 mg/dl (8.4-10.2); Carbon Dioxide 24 mmol/L (22-30); Chloride 103 mmol/L (98-107); Estimated Creatinine Clearance 90 ml/min; Glucose 115 mg/dl (70-99); Potassium 4.1 mmol/L (3.5-5.1); Sodium 134 mmol/L (135-145); Total Bilirubin 1.1 mg/dl (0.2-1.3); Total Protein 5.1 g/dl (6.3-8.2); eGFR > 60.00
--- NOTE | 2024-06-17 05:02 | PTCARENOTE ---
New YULISSA drain bulb obtained and placed. no apparent leak, bulb able to be compressed.
pt forgetful; bed alarm ringing when pt attempting to go to BSC. moderate to large liquid BM.
voiding via urinal/BSC. afebrile. bed alarm set. call duran within reach; reminded to use for assistance.
--- NOTE | 2024-06-17 07:49 | PTCARENOTE ---
On morning RN rounds, pt's YULISSA drain was found pulled out. Per nightshift RN, drain must have come out sometime between [id number]. Sutures remain attached to patient's skin. Cleaned with NS and applied sterile gauze. TT and made aware.
--- NOTE | 2024-06-17 08:40 | W.PN.CARDCBS ---
Addendum entered and electronically signed by Josh Sharp MD 06/17/24 14:30:
I saw and examined the patient.
The Treasury Specialist's note was reviewed and I agree with the note.
Comment:
GEN: No distress, awake, Ox3
HEENT: supple, anicteric, mmm
LUNGS: CTA, no wheezes/rales
CV: Reg, S1/S2, 1/6 syst LSB, no gallop
ABD: soft, BS dec, mild tenderness
EXT: No edema
NEURO: Gross non-focal
SKIN: No rash
Plan:
Remains in sinus rhythm. Now on oral Lopressor and remains stable.
Continue IV heparin for now and switch to Eliquis when okay from surgical standpoint.
Will arrange cardiology follow-up.
Original Note:
Today's Communication / Plan
-
eventual transition from IV heparin to eliquis once ok from gen surg standpoint
treatment of ileus per gen surg/primary service
in SR. continue lopressor
OP cardiac follow up arranged
will follow peripherally
Impression / Plan
-
PCP: Jn Rouse
Masseur/Masseuse: Dr. Rodriguez, last seen in 2019
Impression:
Presented 06/10/2024 with abdominal pain, belching, heartburn
Acute cholecystitis
s/p Robot assisted laparoscopic cholecystectomy 06/11/24
Leukocytosis
Atrial fibrillation with rapid ventricular response s/p spontaneous conversion to SR 06/14
SVT, ablation 2016
Hypertension
Hyperlipidemia
Type 2 diabetes
Syncope
Tobacco abuse/COPD
Bladder cancer status post TURBT x 2 and chemo
GERD
Dementia
Echo 02/24/19: EF 60%, mild conc lvh, mild prolapse of posterior leaflet with mild-mod mr, mild ai�������
Fady mibi 02/2019: fixed inferior defect
ECHO 06/14/24: TDS, EF 55-60%, dilated RV, mild MR, mild TR, mild eccentric AR, PAP 29 mmHg, no significant pericardial effusion, aortic root appears mildly dilated
Plan:
- patient presented with abd pain and underwent robot assisted laparoscopic cholecystectomy 06/11/24 complicated by post op ileus
- remains with NGT in place. continue treatment per primary service and gen surgery. CTAP 06/16 remains with evidence of marked ileus, he is not passing flatus per patient report. he is tolerating sips of clears
- He had A-fib with RVR earlier in admission, spontaneously converted 06/14 and remains in sinus rhythm with PVCs, 1 run of bigeminy on review of tele overnight. he had brief episode of 2:1 av block 06/15 into 06/16, but none noted last night
- Continue lopressor 50mg BID
- Echocardiogram 06/14/24 with results as above
- started on IV heparin 06/15, continue. plan to start eliquis 5mg BID once bowel function returns
- Outpatient cardiac follow-up arranged
- will plan to follow peripherally
HPI:
Patient is an 88-year-old male with past medical history significant for SVT, hypertension, hyperlipidemia, DM, syncope, tobacco abuse/COPD, bladder cancer status post TURBT x 2 and chemo, GERD and dementia who presented to emergency department
06/10/2024 with complaints of ongoing intermittent abdominal pain, belching, heartburn worse after eating spicy foods. Symptoms improved with Tums or Pepcid. On presentation patient found to be tachycardic and tachypneic as well as a leukocytosis.
Concerns for acute cholecystitis on CT of abdomen and surgery has been consulted. ECG showed atrial fibrillation with rapid ventricular response which was new diagnosis. Troponin 0.015. Patient was placed on IV antibiotics and IV Cardizem drip.
Cardiology being asked to see patient given atrial fibrillation.
Talked with who helps to provide history. She reports her is generally active and walks a dog. He does some chores around the house and can go up and down the steps without having to stop. He has not complained of any chest pain or
palpitations to her.
Progress Note - Masseur/Masseuse
Subjective
Date of Service: June 17, 2024
denies abd pain. not yet passing flatus
Objective
Labs:
06/17/24 03:09
06/17/24 03:09
Labs
Hgb 13.0 g/dL (13.0-18.0) 06/17/24 03:09
Hct 39.3 % (39.0-52.0) 06/17/24 03:09
Plt Count 224 10^3/uL (130-400) 06/17/24 03:09
APTT 131.2 Sec (23.4-35.0) H 06/17/24 03:09
Sodium 134 mmol/L (135-145) L 06/17/24 03:09
Potassium 4.1 mmol/L (3.5-5.1) 06/17/24 03:09
BUN 21 mg/dl (9-20) H 06/17/24 03:09
Creatinine 0.7 mg/dL (0.7-1.3) 06/17/24 03:09
Glucose 115 mg/dl (70-99) H 06/17/24 03:09
Vital Signs and I&O:
Vital Signs
Temp Pulse Resp BP Pulse Ox
98.4 F 73 16 138/65 94
06/17/24 07:00 06/17/24 06:00 06/17/24 06:00 06/17/24 06:00 06/17/24 06:00
Vital Signs
Temp Pulse Resp BP Pulse Ox
98.4 F 73 16 138/65 94
06/17/24 07:00 06/17/24 06:00 06/17/24 06:00 06/17/24 06:00 06/17/24 06:00
Intake & Output
06/15/24 06/16/24 06/17/24 06/18/24
07:59 07:59 07:59 07:59
Intake Total 1550 / 1550 2520 / 2520 240 / 240
Output Total 2059 / 2059 2185 / 218 780 / 780
Balance -510 / -510 335 / 335 -540 / -540
Physical Exam
Physical Exam
GEN: No distress, awake, alert, oriented to self, place
HEENT: supple, anicteric, mmm, eomi. NGT in place
LUNGS: CTA B/L, no wheezes/rales
CV: Reg, S1/S2, no murmur
ABD: soft, BS+, mildly distended
EXT: No cyanosis, clubbing. trace edema of B/L LE
NEURO: Gross non-focal
SKIN: Warm, pink, dry. No rash
[2024-06-17] MEDS: LOPRESSOR 50 MG PO ×2 (09:07→19:49)
[2024-06-17] MEDS: LR 1000 IV ×2 (09:14→19:48)
[2024-06-17] MEDS: NSS (PRESERVATIVE FREE) 10 ML IV (09:16)
[2024-06-17] MEDS: PROSCAR 5 MG PO (09:16)
[2024-06-17] MEDS: PROTONIX IV 40 MG IV (09:17)
[2024-06-17 11:21] LABS: APTT 70.6 Sec (23.4-35.0)
--- NOTE | 2024-06-17 12:11 | W.PN.HOSP.TC ---
Today's Communication/Plan
-
Surgery recs
remains w/ileus
cont po meds
IV hep
IV abx
Assessment / Plan
Assessment / Plan
88yo M with dementia, BPH, HFpEF, moderate MR brought with days of abdominal pain found acute cholecystitis with Afib with RVR. S/P cholecytectomy on 06/12/24. HR improved but postOP complicated with ileus and abd distension
A/P:
#New onset Afib with RVR
2/2 infection
HR well controlled
po lopressor -per GS okay for meds
cardio consult
Start hep gtt as cleared by GS w/o bolus
now in NSR
ECHO noted
#Acute gangrenous suppurative cholecystitis
#Bilirubinemia 2/2 above, cannot exclude choledocholithiasis
Zosyn switched to Merrem on 06/13/24 since patient appears in distress from abd distension
follow LFT
GenSx: s/p lap [place] on 06/12/24, purulent fluid in gall bladder
#Acute hypoxic respiratory 2/2 abdominal distension
wean off O2 as possible
#Abdominal distension with ileus
concern for obstruction
NPO, NGT clamped.
okay for meds.
Repeat CT abd/pelvis w/ marked ileus. Partial intestinal obstruction, especially distally cannot be entirely excluded. No free air.
IVF cont
#BPH
watch for retention, follow labs
DVT ppx SCDs/hep gtt
PT eval -snf vs. home HH
update spouse over the phone in details.
Anticipated Discharge: > 48 hours
Subjective/Interval History
-
Date of Service: June 17, 2024
YULISSA drain is out
having bm
Objective Data
-
Labs:
Laboratory Results
06/17/24 06/17/24 06/17/24
03:09 10:59 17:45
WBC 14.2 H
Hgb 13.0
Hct 39.3
Plt Count 224
APTT 131.2 H 70.6 H Pending
Sodium 134 L
Potassium 4.1
Chloride 103
Carbon Dioxide 24
BUN 21 H
Creatinine 0.7
Glucose 115 H
Calcium 8.1 L
Total Bilirubin 1.1
AST 32
ALT 27
Alkaline Phosphatase 65
Vital Signs:
Vital Signs
Temp Pulse Resp BP Pulse Ox
98.6 F 70 15 133/80 94
06/17/24 11:08 06/17/24 10:30 06/17/24 10:30 06/17/24 10:30 06/17/24 08:00
I&O
06/16/24 06/17/24 06/18/24
06:59 06:59 06:59
Intake Total 2520 / 2520 240 / 240
Output Total 2385 / 2385 780 / 780
Balance 135 / 135 -540 / -540
Physical Exam
-
General: Well Developed, Well Nourished, No Apparent Distress and Comfortable
HEENT: Normocephalic, Atraumatic and Other (dry mucous membranes)
Respiratory: Decreased Breath Sounds
Cardiac: Regular Rhythm and S1/S2
GI: Tender, Distended and Other (surgical scar mild erythema but no drainage. )
Musculoskeletal: No Clubbing, No Cyanosis and No Edema
Neuro: Awake, Alert, Oriented and No Motor Deficits
Psych: Calm
Data Reviewed
-
Total Time Spent with Patient (in minutes): 55
--- NOTE | 2024-06-17 14:46 | CM ---
Patient with Hx dementia with Dx cholecystitis s/p lap [place], New onset Afib with RVR. Room air. NPO/IVF/NGT (clamped). Receiving Heparin gtt, IV Abx. YULISSA drain found pulled out per nurse. Per nurse assessment; forgetful. PT 06/15; required
assist of 2, recommend skilled rehab v home PT.
Met with patient and spoke with patient's Janeth; both agree to d/c to home, regardless if patient still needs assistance with his mobility. is an RN Addiction Social Worker at [facility] and feels she can help the patient at home. Patient
states he defers to his to decide on VN agencies, and Janeth chooses [facility], for PT only.
Referral to [facility].
CM continuing to follow for d/c needs.
Plan home with [facility].
[2024-06-17] MEDS: HEPARIN 25000 UNITS/250 ML IV (15:32)
--- NOTE | 2024-06-17 16:04 | PTCARENOTE ---
While this RN was at lunch, I was informed by another RN and SN that patient had pulled out his NG tube. TT to and and made aware.
--- NOTE | 2024-06-17 17:05 | W.PN.GS2 ---
Today's Communication / Plan
-
`
Assessment / Plan
-
88 yo male presenting with acute cholecystitis in rapid afib
POD #6 RAL cholecystectomy with gangrenous/necrotic gallbladder with purulent drainage encountered
Postoperative ileus clinically improving with returning GI function
CT imaging yesterday reviewed. No postoperative fluid collections. Ileus like pattern to the small bowel/colon.
--NG tube out -sips of clears
--C/W ABX, 7 day total course postop given severity of cholecystitis and operative findings.
--Analgesics/antiemetics prn
--OOB as tolerated
--On IV heparin gtt, but would hold off on oral agents until good bowel recovery
Subjective Data
-
Date of Service: June 17, 2024
Patient seen and examined.
at bedside.
YULISSA fell out overnight.
NG tube removed today by patient inadvertently.
Patient offers no complaints.
Denies abdominal pain but acknowledges that he still feels a bit bloated/distended.
Having loose bowel movements.
Denies nausea. No vomiting.
Objective Data
-
Intake and Output
06/16/24 06/17/24 06/18/24
06:59 06:59 06:59
Intake Total 2520 / 2520 240 / 240
Output Total 2385 / 2385 780 / 780
Balance 135 / 135 -540 / -540
Intake:
Oral fluids 1100 / 1100 240 / 240
IV fluids (Total) 1200 / 1200
IV piggybacks 160 / 160
Amount instilled into GI Tube ( 60 / 60
Total)
Garza Sump 60 / 60
Output:
Liquid stool amount 150 / 150
Rectum 150 / 150
Drain Output (Total) 285 / 285 105 / 105
Left Jai-Mercer 285 / 285 105 / 105
Gastrointestinal tube output ( 500 / 500
Total)
Garza Sump 500 / 500
Urine, Voided 1450 / 1450 675 / 675
Other:
Number of approximated MODERATE 1
amounts of urine
How many times incontinent 1
SATURATED amount urine
Number of unmeasured liquid
stools
Rectum 1 1
Vital Signs
Temp Pulse Resp BP Pulse Ox
98.4 F 76 23 142/84 94
06/17/24 15:11 06/17/24 16:00 06/17/24 16:00 06/17/24 14:00 06/17/24 16:46
Lab Results
06/17/24 03:09
06/17/24 03:09
Calcium 8.1 mg/dl (8.4-10.2) L 06/17/24 03:09
Magnesium 2.2 mg/dl (1.6-2.3) 06/16/24 05:18
Total Bilirubin 1.1 mg/dl (0.2-1.3) 06/17/24 03:09
Direct Bilirubin 0.3 mg/dl (0.0-0.4) 06/11/24 03:26
AST 32 U/L (17-59) 06/17/24 03:09
ALT 27 U/L (0-50) 06/17/24 03:09
Alkaline Phosphatase 65 U/L (38-126) 06/17/24 03:09
Total Protein 5.1 g/dl (6.3-8.2) L 06/17/24 03:09
Albumin 2.6 g/dl (3.5-5.0) L 06/17/24 03:09
Physical Exam
-
NAD AAO
ABD: Softly distended and tympanitic but not tense. No tenderness on palpation.
Surgical sites with glue dressings.
Left lower quadrant old drain site with dry gauze. No leakage or to 4 x 4 gauze.
[2024-06-17 18:46] LABS: APTT 98.1 Sec (23.4-35.0)
[2024-06-17] MEDS: FLOMAX 0.4 MG PO (19:49)
[2024-06-18] VITALS (15 sets, daily range): BP systolic 90–154; BP diastolic 53–90; PULSE 103; O2SAT 97
[2024-06-18 00:49] LABS: APTT 115.6 Sec (23.4-35.0)
[2024-06-18] MEDS: MERREM 500 MG IV ×4 (00:50→19:30)
[2024-06-18] MEDS: STERILE WATER FOR INJECTION 10 ML IV ×4 (00:50→19:30)
[2024-06-18] MEDS: LR 1000 IV ×2 (05:54→16:13)
--- NOTE | 2024-06-18 06:01 | PTCARENOTE ---
No diarrhea. Denies abd pain. voiding via urinal. swallowed pills w/o issues. abd dressing intact. NSR/SB w/ PVCs on health care specialist. Sp02 WNL on RA. tolerating heparin gtt/ LR @100mL/hr. turning self in bed. call duran within reach. bed alarm set
for safety.
[2024-06-18 07:19] LABS: % Basophils 0.2 % (0-2); % Eosinophils 1.2 % (0-6); % Immature Granulocytes 1.4 % (0-0.5); % Lymphocytes 10.6 % (20.5-51.1); % Monocytes 6.7 % (1.7-9.3); % Neutrophils 79.9 % (42.2-75.2); Absolute Eosinophils 0.1 10^3/uL (0-0.7); Absolute Immature Granulocytes 0.2 10^3/uL (0-0.05); Absolute Lymphocytes 1.1 10^3/uL (1.2-3.4); Absolute Monocytes 0.7 10^3/uL (0.1-0.6); Absolute Neutrophils 8.6 10^3/uL (1.4-6.5); Hemoglobin 12.1 g/dL (13.0-18.0); Mean Corp Hgb Conc. 32.7 g/dL (33.0-37.0); Mean Corpuscular Hgb 27.3 pg (27.0-31.0); Mean Corpuscular Volume 83.5 fL (80.0-94.0); Mean Platelet Volume 9.8 fL (7.4-10.4); Nucleated Red Blood Cells % 0 % (-); Platelet Count 206 10^3/uL (130-400); Red Blood Cell Count 4.43 10^6/uL (4.70-6.10); Red Cell Dist. Width 13.3 % (11.5-14.5); White Blood Cell Count 10.7 10^3/uL (4.8-10.8)
[2024-06-18 07:23] LABS: APTT 76.2 Sec (23.4-35.0)
[2024-06-18 07:38] LABS: ALT (SGPT) 29 U/L (0-50); AST (SGOT) 33 U/L (17-59); Albumin 2.3 g/dl (3.5-5.0); Alkaline Phosphatase 62 U/L (38-126); Blood Urea Nitrogen 17 mg/dl (9-20); Calcium 7.7 mg/dl (8.4-10.2); Carbon Dioxide 28 mmol/L (22-30); Chloride 103 mmol/L (98-107); Estimated Creatinine Clearance 90 ml/min; Glucose 97 mg/dl (70-99); Potassium 3.8 mmol/L (3.5-5.1); Sodium 135 mmol/L (135-145); Total Bilirubin 0.9 mg/dl (0.2-1.3); Total Protein 4.7 g/dl (6.3-8.2); eGFR > 60.00
[2024-06-18] MEDS: LOPRESSOR 50 MG PO ×2 (08:22→20:59)
[2024-06-18] MEDS: PROSCAR 5 MG PO (08:23)
[2024-06-18] MEDS: NSS (PRESERVATIVE FREE) 10 ML IV (08:23)
[2024-06-18] MEDS: PROTONIX IV 40 MG IV (08:23)
--- NOTE | 2024-06-18 09:40 | VNURNOTE ---
Chart reviewed. Home Health Liaison spoke with patient's spouse Janeth. Explained VN therapy, visits, schedule and homebound status. She is agreeable and understands that visits at home will be 2-3 x per week to assess and teach medical
management. Spouse is aware that [facility] for [facility] of care in 1-2 days after discharge from . [facility] referral [facility].
[2024-06-18] MEDS: HEPARIN 25000 UNITS/250 ML IV (09:45)
--- NOTE | 2024-06-18 10:40 | W.PN.GS2 ---
Today's Communication / Plan
-
Stop antibiotics
Okay to transfer out of the IMU
Will stay on clears for now due to abdominal exam distention, await more robust return of bowel function before advancing diet please.
Assessment / Plan
-
88 yo male presenting with acute cholecystitis in rapid afib
POD #7 RAL cholecystectomy with gangrenous/necrotic gallbladder with purulent drainage encountered
Postoperative ileus clinically improving with returning GI function
CT imaging yesterday reviewed. No postoperative fluid collections. Ileus like pattern to the small bowel/colon.
-- Clears, still awaiting robust return of bowel function
-- Can stop antibiotics today
--Analgesics/antiemetics prn
--OOB as tolerated
--On IV heparin gtt, but would hold off on oral agents until good bowel recovery
Time Spent
Total Time Spent with Patient (in minutes): 20
Subjective Data
-
Date of Service: June 18, 2024
Interval Events:
No acute events overnight. Slept well. Pain Controlled. Denies Nausea/Vomiting, +bowel function.
Objective Data
-
Intake and Output
06/17/24 06/18/24 06/19/24
06:59 06:59 06:59
Intake Total 240 / 240
Output Total 780 / 780 1100 / 1100 300 / 300
Balance -540 / -540 -1100 / -1100 -300 / -300
Intake:
Oral fluids 240 / 240
Output:
Drain Output (Total) 105 / 105
Left Jai-Mercer 105 / 105
Urine, Voided 675 / 675 1100 / 1100 300 / 300
Other:
Number of approximated MODERATE 1 1
amounts of urine
How many times incontinent 1
SATURATED amount urine
Number of unmeasured liquid
stools
Rectum 1 1
Vital Signs
Temp Pulse Resp BP Pulse Ox
99.1 F 57 19 145/72 98
06/18/24 07:38 06/18/24 08:22 06/18/24 08:00 06/18/24 08:22 06/18/24 08:00
Lab Results
06/18/24 06:58
06/18/24 06:58
Calcium 7.7 mg/dl (8.4-10.2) L 06/18/24 06:58
Magnesium 2.2 mg/dl (1.6-2.3) 06/16/24 05:18
Total Bilirubin 0.9 mg/dl (0.2-1.3) 06/18/24 06:58
Direct Bilirubin 0.3 mg/dl (0.0-0.4) 06/11/24 03:26
AST 33 U/L (17-59) 06/18/24 06:58
ALT 29 U/L (0-50) 06/18/24 06:58
Alkaline Phosphatase 62 U/L (38-126) 06/18/24 06:58
Total Protein 4.7 g/dl (6.3-8.2) L 06/18/24 06:58
Albumin 2.3 g/dl (3.5-5.0) L 06/18/24 06:58
Physical Exam
-
GENERAL/NEURO: Awake, Alert, no distress
CHEST: Unlabored breathing on RA
ABDOMEN: Soft, Non-Tender, distended, incisions clean dry and intact, YULISSA drain site with a stitch still in place was removed at bedside today.
Patient has a alejandro catheter: No
Patient has a central line: No
--- NOTE | 2024-06-18 10:46 | W.PN.HOSP.TC ---
Today's Communication/Plan
-
tx to tele
started on clears
complete 7d abx
Po lopressor/IV hep for now
Assessment / Plan
Assessment / Plan
88yo M with dementia, BPH, HFpEF, moderate MR brought with days of abdominal pain found acute cholecystitis with Afib with RVR. S/P cholecytectomy on 06/12/24. HR improved but postOP complicated with ileus and abd distension
A/P:
#New onset Afib with RVR
2/2 infection
HR well controlled
po lopressor -per GS okay for meds
cardio consult
Start hep gtt as cleared by GS w/o bolus
now in NSR
ECHO noted
#Acute gangrenous suppurative cholecystitis
#Bilirubinemia 2/2 above, cannot exclude choledocholithiasis
Zosyn switched to Merrem on 06/13/24 since patient appears in distress from abd distension
follow LFT
GenSx: s/p lap [place] on 06/12/24, purulent fluid in gall bladder
#Acute hypoxic respiratory 2/2 abdominal distension
wean off O2 as possible
#Abdominal distension with ileus
concern for obstruction
NGT clamped and out now. Bijan drain out.
okay for meds.
Repeat CT abd/pelvis w/ marked ileus. Partial intestinal obstruction, especially distally cannot be entirely excluded. No free air.
Started on clears. Can DC ivf.
#BPH
watch for retention, follow labs
DVT ppx SCDs/hep gtt
PT eval -snf vs. home HH
tx to tele
Anticipated Discharge: > 48 hours
Subjective/Interval History
-
Date of Service: June 18, 2024
having bm
denies abd pain
Objective Data
-
Labs:
Laboratory Results
06/18/24 06/18/24 06/18/24
00:30 06:58 13:00
WBC 10.7
Hgb 12.1 L
Hct 37.0 L
Plt Count 206
APTT 115.6 H 76.2 H Pending
Sodium 135
Potassium 3.8
Chloride 103
Carbon Dioxide 28
BUN 17
Creatinine 0.7
Glucose 97
Calcium 7.7 L
Total Bilirubin 0.9
AST 33
ALT 29
Alkaline Phosphatase 62
Vital Signs:
Vital Signs
Temp Pulse Resp BP Pulse Ox
99.1 F 57 19 145/72 98
06/18/24 07:38 06/18/24 08:22 06/18/24 08:00 06/18/24 08:22 06/18/24 08:00
I&O
06/17/24 06/18/24 06/19/24
06:59 06:59 06:59
Intake Total 240 / 240
Output Total 780 / 780 1100 / 1100 300 / 300
Balance -540 / -540 -1100 / -1100 -300 / -300
Physical Exam
-
General: Well Developed, Well Nourished, No Apparent Distress and Comfortable
HEENT: Normocephalic and Atraumatic
Respiratory: Decreased Breath Sounds
Cardiac: Regular Rhythm and S1/S2
GI: Tender, Distended and Other (surgical scar mild erythema but no drainage. )
Musculoskeletal: No Clubbing, No Cyanosis and No Edema
Neuro: Awake, Alert, Oriented and No Motor Deficits
Psych: Calm
Data Reviewed
-
Total Time Spent with Patient (in minutes): 55
[2024-06-18 13:27] LABS: APTT 69.4 Sec (23.4-35.0)
--- NOTE | 2024-06-18 14:43 | PTCARENOTE ---
Assumed care of patient this morning. He was up OOB approx 1000 and has been in the chair since. He has had multiple episodes of greenish diarrhea, for which patient calls occasionally but otherwise just sets off the chair alarm. Patient with
dementia and very forgetful. Patient was switched to clear liquids, which patient is tolerating, denies abdominal pain or nausea. I spoke with patient's and updated her. Heparin gtt still infusing, see flowsheet. Pt downgraded to tele and
awaiting a bed for transfer. Assessment, care and VS as charted.
--- NOTE | 2024-06-18 17:30 | PTCARENOTE ---
Pt received from IMU via stretcher. Transport was w/o incident. Pt is AAOx person and place, at bedside. Pt is currently in Sinus Rhythm on Heart monitor, and HR sounds regular apically. Pt's abd with 3 Lap sites well approximated with surgi
glue, no drainage noted. Left abd with dry dressing at prior Bijan site. VSS, Pt is afebrile. Pt and Pt's instructed on plan of care. Pt and verbalized understanding of instructions. Call duran is within reach.
[2024-06-18 19:56] LABS: APTT 92.9 Sec (23.4-35.0)
[2024-06-18] MEDS: FLOMAX 0.4 MG PO (20:59)
[2024-06-19] MEDS: STERILE WATER FOR INJECTION 10 ML IV ×2 (00:34→04:59)
[2024-06-19] MEDS: MERREM 500 MG IV ×2 (00:34→04:59)
[2024-06-19] MEDS: LR 1000 IV (00:35)
[2024-06-19 02:59] LABS: APTT 81.2 Sec (23.4-35.0)
[2024-06-19 03:10] VITALS: BP 135/61
[2024-06-19] MEDS: HEPARIN 25000 UNITS/250 ML IV ×2 (04:52→22:51)
[2024-06-19 07:25] LABS: % Basophils 0.2 % (0-2); % Eosinophils 1.1 % (0-6); % Immature Granulocytes 1.1 % (0-0.5); % Lymphocytes 10.7 % (20.5-51.1); % Monocytes 7.4 % (1.7-9.3); % Neutrophils 79.5 % (42.2-75.2); Absolute Eosinophils 0.1 10^3/uL (0-0.7); Absolute Immature Granulocytes 0.1 10^3/uL (0-0.05); Absolute Lymphocytes 1.1 10^3/uL (1.2-3.4); Absolute Monocytes 0.8 10^3/uL (0.1-0.6); Absolute Neutrophils 8.3 10^3/uL (1.4-6.5); Hemoglobin 12.5 g/dL (13.0-18.0); Mean Corp Hgb Conc. 32.1 g/dL (33.0-37.0); Mean Corpuscular Volume 84.2 fL (80.0-94.0); Mean Platelet Volume 10.1 fL (7.4-10.4); Nucleated Red Blood Cells % 0 % (-); Platelet Count 229 10^3/uL (130-400); Red Blood Cell Count 4.63 10^6/uL (4.70-6.10); Red Cell Dist. Width 13.3 % (11.5-14.5); White Blood Cell Count 10.4 10^3/uL (4.8-10.8)
[2024-06-19 07:33] VITALS: BP 151/68
[2024-06-19 08:04] LABS: ALT (SGPT) 28 U/L (0-50); AST (SGOT) 28 U/L (17-59); Albumin 2.6 g/dl (3.5-5.0); Alkaline Phosphatase 68 U/L (38-126); Blood Urea Nitrogen 12 mg/dl (9-20); Calcium 7.9 mg/dl (8.4-10.2); Carbon Dioxide 29 mmol/L (22-30); Chloride 102 mmol/L (98-107); Estimated Creatinine Clearance 78 ml/min; Glucose 121 mg/dl (70-99); Potassium 3.8 mmol/L (3.5-5.1); Sodium 135 mmol/L (135-145); Total Bilirubin 0.8 mg/dl (0.2-1.3); Total Protein 5.1 g/dl (6.3-8.2); eGFR > 60.00
[2024-06-19] MEDS: LOPRESSOR 50 MG PO ×2 (08:27→20:51)
[2024-06-19] MEDS: PROSCAR 5 MG PO (08:28)
[2024-06-19] MEDS: NSS (PRESERVATIVE FREE) 10 ML IV (08:28)
[2024-06-19] MEDS: PROTONIX IV 40 MG IV (08:28)
[2024-06-19 11:00] VITALS: BP 127/57
--- NOTE | 2024-06-19 12:35 | W.PN.GS2 ---
Today's Communication / Plan
-
CLD with supplements
Assessment / Plan
-
88 yo male presenting with acute cholecystitis in rapid afib
POD 8 RAL cholecystectomy with gangrenous/necrotic gallbladder with purulent drainage encountered
Repeat CT on 06/16 No postoperative fluid collections. Ileus like pattern to the small bowel/colon.
Completed 1 week course of abx
AFVSS
Clinically improving ileus with returning noted GI function, still with significant distention. Tolerating clears
-- Continue on clears, still awaiting robust return of bowel function
-- Analgesics/antiemetics prn
-- OOB as tolerated, encouraged activity/ambulation
-- On IV heparin gtt, but would hold off on oral agents until good bowel recovery
Subjective Data
-
Date of Service: June 19, 2024
Patient seen and examined at bedside with Dr. Ragsdale. Denies n/v. Passing some gas. No Bm yet this am, one sm. liquid stool documented overnight. Minimal pain.
Objective Data
-
Intake and Output
06/18/24 06/19/24 06/20/24
06:59 06:59 06:59
Output Total 1100 / 1100 775 / 775
Balance -1100 / -1100 -775 / -775
Output:
Urine, Voided 1100 / 1100 775 / 775
Other:
Number of approximated MODERATE 1
amounts of urine
Number of unmeasured liquid
stools
Rectum 1 1
Vital Signs
Temp Pulse Resp BP Pulse Ox
98.1 F 54 16 127/57 96
06/19/24 11:00 06/19/24 11:00 06/19/24 11:00 06/19/24 11:00 06/19/24 11:00
Lab Results
06/19/24 06:25
06/19/24 06:25
Calcium 7.9 mg/dl (8.4-10.2) L 06/19/24 06:25
Magnesium 2.2 mg/dl (1.6-2.3) 06/16/24 05:18
Total Bilirubin 0.8 mg/dl (0.2-1.3) 06/19/24 06:25
Direct Bilirubin 0.3 mg/dl (0.0-0.4) 06/11/24 03:26
AST 28 U/L (17-59) 06/19/24 06:25
ALT 28 U/L (0-50) 06/19/24 06:25
Alkaline Phosphatase 68 U/L (38-126) 06/19/24 06:25
Total Protein 5.1 g/dl (6.3-8.2) L 06/19/24 06:25
Albumin 2.6 g/dl (3.5-5.0) L 06/19/24 06:25
Physical Exam
-
GENERAL/NEURO: Awake, Alert, no distress
CHEST: Unlabored breathing on RA
ABDOMEN: Soft, Non-Tender, distended, incisions clean dry and intact, prior YULISSA drain site with serous drainage, dressing changed.
--- NOTE | 2024-06-19 13:02 | W.PN.HOSP.TC ---
Today's Communication/Plan
-
Remains with distention
Clear liquid diet for now
Continue with heparin drip
Off antibiotic
Assessment / Plan
Assessment / Plan
88yo M with dementia, BPH, HFpEF, moderate MR brought with days of abdominal pain found acute cholecystitis with Afib with RVR. S/P cholecytectomy on 06/12/24. HR improved but postOP complicated with ileus and abd distension
A/P:
#New onset Afib with RVR
2/2 infection
HR well controlled
po lopressor -per GS okay for meds
cardio consult
Start hep gtt as cleared by GS w/o bolus
now in NSR
ECHO noted
#Acute gangrenous suppurative cholecystitis
#Bilirubinemia 2/2 above, cannot exclude choledocholithiasis
Zosyn switched to Merrem on 06/13/24 since patient appears in distress from abd distension
Patient completed 7-day course postop per surgery and can be discontinued and off antibiotics
follow LFT
GenSx: s/p lap [place] on 06/12/24, purulent fluid in gall bladder
#Acute hypoxic respiratory 2/2 abdominal distension
wean off O2 as possible
#Abdominal distension with ileus
NGT clamped and out now. Bijan drain out.
okay for meds.
Repeat CT abd/pelvis w/ marked ileus. Partial intestinal obstruction, especially distally cannot be entirely excluded. No free air.
Started on clears. Can DC ivf.
#BPH
watch for retention, follow labs
DVT ppx SCDs/hep gtt
PT eval -snf vs. home HH
Updated spouse over the phone in details
Anticipated Discharge: > 48 hours
Subjective/Interval History
-
Date of Service: June 19, 2024
Tolerating liquids
no abd pain but remains w/distention
Objective Data
-
Labs:
Laboratory Results
06/19/24 06/19/24
02:36 06:25
WBC 10.4
Hgb 12.5 L
Hct 39.0
Plt Count 229
APTT 81.2 H
Sodium 135
Potassium 3.8
Chloride 102
Carbon Dioxide 29
BUN 12
Creatinine 0.8
Glucose 121 H
Calcium 7.9 L
Total Bilirubin 0.8
AST 28
ALT 28
Alkaline Phosphatase 68
Vital Signs:
Vital Signs
Temp Pulse Resp BP Pulse Ox
98.1 F 54 16 127/57 96
06/19/24 11:00 06/19/24 11:00 06/19/24 11:00 06/19/24 11:00 06/19/24 11:00
I&O
06/18/24 06/19/24 06/20/24
06:59 06:59 06:59
Output Total 1100 / 1100 775 / 775
Balance -1100 / -1100 -775 / -775
Physical Exam
-
General: Well Developed, Well Nourished, No Apparent Distress and Comfortable
HEENT: Normocephalic and Atraumatic
Respiratory: Decreased Breath Sounds
Cardiac: Regular Rhythm and S1/S2
GI: Tender, Distended and Other (surgical scar mild erythema but no drainage. )
Musculoskeletal: No Clubbing, No Cyanosis and No Edema
Neuro: Awake, Alert, Oriented and No Motor Deficits
Psych: Calm
[2024-06-19 15:25] VITALS: BP 141/67
[2024-06-19 19:20] VITALS: BP 144/55
[2024-06-19] MEDS: FLOMAX 0.4 MG PO (21:45)
[2024-06-19 23:25] VITALS: BP 121/72
[2024-06-20 03:45] VITALS: BP 135/68
[2024-06-20 04:38] LABS: % Basophils 0.3 % (0-2); % Eosinophils 1.3 % (0-6); % Immature Granulocytes 0.8 % (0-0.5); % Lymphocytes 13.2 % (20.5-51.1); % Monocytes 8.9 % (1.7-9.3); % Neutrophils 75.5 % (42.2-75.2); Absolute Eosinophils 0.1 10^3/uL (0-0.7); Absolute Immature Granulocytes 0.1 10^3/uL (0-0.05); Absolute Lymphocytes 1.3 10^3/uL (1.2-3.4); Absolute Monocytes 0.9 10^3/uL (0.1-0.6); Absolute Neutrophils 7.7 10^3/uL (1.4-6.5); Hematocrit 37.5 % (39.0-52.0); Hemoglobin 12.3 g/dL (13.0-18.0); Mean Corp Hgb Conc. 32.8 g/dL (33.0-37.0); Mean Corpuscular Hgb 27.2 pg (27.0-31.0); Mean Platelet Volume 9.6 fL (7.4-10.4); Nucleated Red Blood Cells % 0 % (-); Platelet Count 230 10^3/uL (130-400); Red Blood Cell Count 4.52 10^6/uL (4.70-6.10); Red Cell Dist. Width 13.4 % (11.5-14.5); White Blood Cell Count 10.2 10^3/uL (4.8-10.8)
[2024-06-20 04:52] LABS: APTT 91.7 Sec (23.4-35.0)
[2024-06-20 05:01] LABS: ALT (SGPT) 25 U/L (0-50); AST (SGOT) 22 U/L (17-59); Albumin 2.6 g/dl (3.5-5.0); Alkaline Phosphatase 66 U/L (38-126); Blood Urea Nitrogen 9 mg/dl (9-20); Calcium 7.9 mg/dl (8.4-10.2); Carbon Dioxide 28 mmol/L (22-30); Chloride 102 mmol/L (98-107); Estimated Creatinine Clearance 90 ml/min; Glucose 128 mg/dl (70-99); Potassium 3.5 mmol/L (3.5-5.1); Sodium 134 mmol/L (135-145); Total Bilirubin 0.8 mg/dl (0.2-1.3); eGFR > 60.00
[2024-06-20 07:40] VITALS: BP 139/64
[2024-06-20] MEDS: NSS (PRESERVATIVE FREE) 10 ML IV (09:11)
[2024-06-20] MEDS: PROTONIX IV 40 MG IV (09:11)
[2024-06-20] MEDS: PROSCAR 5 MG PO (09:12)
[2024-06-20] MEDS: LOPRESSOR 50 MG PO ×2 (09:12→19:45)
--- NOTE | 2024-06-20 10:05 | W.PN.GS2 ---
Today's Communication / Plan
-
Regular diet
OK for PO AC
Assessment / Plan
-
88 yo male presenting with acute cholecystitis in rapid afib
POD 9 RAL cholecystectomy with gangrenous/necrotic gallbladder with purulent drainage encountered
Repeat CT on 06/16 No postoperative fluid collections. Ileus like pattern to the small bowel/colon.
Completed 1 week course of abx
AFVSS
Clinically improving ileus with returning noted GI function, distention much improved. Tolerating clears.
-- Advance to regular diet
-- Analgesics/antiemetics prn
-- OOB as tolerated, encouraged activity/ambulation
-- On IV heparin gtt, Ok to transition to an oral agent today if tolerates dietary advancement
Subjective Data
-
Date of Service: June 20, 2024
Patient seen and examined at bedside with Dr. Philip. Plascencia n/v. Viki historian overall, does not recall having a BM but ntoes he is passing stools. Nursing informed he had multiple stools yesterday.
Objective Data
-
Intake and Output
06/19/24 06/20/24 06/21/24
06:59 06:59 06:59
Intake Total 1280 / 1280
Output Total 775 / 775 1280 / 1280
Balance -775 / -775 0 / 0
Intake:
Oral fluids 1280 / 1280
Output:
Urine, Voided 775 / 775 1280 / 1280
Other:
Number of approximated MODERATE 1 3
amounts of urine
Number of unmeasured liquid
stools
Rectum 1
Vital Signs
Temp Pulse Resp BP Pulse Ox
98.9 F 59 18 139/64 96
06/20/24 07:40 06/20/24 09:12 06/20/24 07:40 06/20/24 09:12 06/20/24 07:40
Lab Results
06/20/24 04:23
06/20/24 04:23
Calcium 7.9 mg/dl (8.4-10.2) L 06/20/24 04:23
Magnesium 2.2 mg/dl (1.6-2.3) 06/16/24 05:18
Total Bilirubin 0.8 mg/dl (0.2-1.3) 06/20/24 04:23
Direct Bilirubin 0.3 mg/dl (0.0-0.4) 06/11/24 03:26
AST 22 U/L (17-59) 06/20/24 04:23
ALT 25 U/L (0-50) 06/20/24 04:23
Alkaline Phosphatase 66 U/L (38-126) 06/20/24 04:23
Total Protein 5.0 g/dl (6.3-8.2) L 06/20/24 04:23
Albumin 2.6 g/dl (3.5-5.0) L 06/20/24 04:23
Physical Exam
-
GENERAL/NEURO: Awake, Alert, no distress
CHEST: Unlabored breathing on RA
ABDOMEN: Soft, Non-Tender, mildly distended, incisions clean dry and intact
--- NOTE | 2024-06-20 10:38 | W.PN.HOSP.TC ---
Today's Communication/Plan
-
Monitor for regular diet tolerance
Switch to Eliquis pending diet tolerance
Off antibiotics
Start disposition
Assessment / Plan
Assessment / Plan
88yo M with dementia, BPH, HFpEF, moderate MR brought with days of abdominal pain found acute cholecystitis with Afib with RVR. S/P cholecytectomy on 06/12/24. HR improved but postOP complicated with ileus and abd distension
A/P:
#New onset Afib with RVR
2/2 infection
HR well controlled
po lopressor -per GS okay for meds
cardio consult
Start hep gtt as cleared by GS w/o bolus
now in NSR
ECHO noted
If tolerating regular diet can probably start Eliquis next 24 hours
#Acute gangrenous suppurative cholecystitis
#Bilirubinemia 2/2 above, cannot exclude choledocholithiasis
Zosyn switched to Merrem on 06/13/24 since patient appears in distress from abd distension
Patient completed 7-day course postop per surgery and can be discontinued and off antibiotics
follow LFT
GenSx: s/p lap [place] on 06/12/24, purulent fluid in gall bladder
#Acute hypoxic respiratory 2/2 abdominal distension
wean off O2 as possible
#Abdominal distension with ileus
NGT clamped and out now. Bijan drain out.
okay for meds.
Repeat CT abd/pelvis w/ marked ileus. Partial intestinal obstruction, especially distally cannot be entirely excluded. No free air.
Of clears. Off IV fluids
Monitor for regular diet tolerance
#BPH
watch for retention, follow labs
DVT ppx SCDs/hep gtt
Dispo-home VN on dc.
Updated spouse over the phone in details on 06/19/24
Anticipated Discharge: Within 24 hours
Subjective/Interval History
-
Date of Service: June 20, 2024
Tolerated liquids so far
Had 2 loose bowel movements yesterday
Objective Data
-
Labs:
Laboratory Results
06/20/24
04:23
WBC 10.2
Hgb 12.3 L
Hct 37.5 L
Plt Count 230
APTT 91.7 H
Sodium 134 L
Potassium 3.5
Chloride 102
Carbon Dioxide 28
BUN 9
Creatinine 0.7
Glucose 128 H
Calcium 7.9 L
Total Bilirubin 0.8
AST 22
ALT 25
Alkaline Phosphatase 66
Vital Signs:
Vital Signs
Temp Pulse Resp BP Pulse Ox
98.9 F 59 18 139/64 96
06/20/24 07:40 06/20/24 09:12 06/20/24 07:40 06/20/24 09:12 06/20/24 07:40
I&O
06/19/24 06/20/24 06/21/24
06:59 06:59 06:59
Intake Total 1280 / 1280
Output Total 775 / 775 1280 / 1280
Balance -775 / -775 0 / 0
Physical Exam
-
General: Well Developed, Well Nourished, No Apparent Distress and Comfortable
HEENT: Normocephalic and Atraumatic
Respiratory: Decreased Breath Sounds
Cardiac: Regular Rhythm and S1/S2
GI: Soft, Nondistended, Normal Bowel Sounds, Tender and Other (surgical scar mild erythema but no drainage. )
Musculoskeletal: No Clubbing, No Cyanosis and No Edema
Neuro: Awake and No Motor Deficits
Psych: Calm and Apparent Dementia
[2024-06-20 11:35] VITALS: BP 117/58
[2024-06-20 15:35] VITALS: BP 143/88
[2024-06-20] MEDS: HEPARIN 25000 UNITS/250 ML IV (16:47)
[2024-06-20 19:15] VITALS: BP 128/58
[2024-06-20] MEDS: ELIQUIS 5 MG PO (19:45)
[2024-06-20] MEDS: FLOMAX 0.4 MG PO (19:45)
[2024-06-20 23:23] VITALS: BP 141/67
[2024-06-21 03:09] VITALS: BP 154/65
[2024-06-21 07:30] LABS: % Basophils 0.2 % (0-2); % Eosinophils 1.2 % (0-6); % Immature Granulocytes 0.5 % (0-0.5); % Lymphocytes 11.3 % (20.5-51.1); % Monocytes 8.1 % (1.7-9.3); % Neutrophils 78.7 % (42.2-75.2); Absolute Eosinophils 0.1 10^3/uL (0-0.7); Absolute Immature Granulocytes 0.1 10^3/uL (0-0.05); Absolute Lymphocytes 1.4 10^3/uL (1.2-3.4); Absolute Neutrophils 9.5 10^3/uL (1.4-6.5); Hematocrit 36.4 % (39.0-52.0); Mean Corpuscular Hgb 27.5 pg (27.0-31.0); Mean Corpuscular Volume 83.5 fL (80.0-94.0); Mean Platelet Volume 9.8 fL (7.4-10.4); Nucleated Red Blood Cells % 0 % (-); Platelet Count 244 10^3/uL (130-400); Red Blood Cell Count 4.36 10^6/uL (4.70-6.10); Red Cell Dist. Width 13.4 % (11.5-14.5)
[2024-06-21 07:35] VITALS: BMI 27.3
[2024-06-21 08:00] VITALS: BP 139/63
[2024-06-21 08:25] LABS: ALT (SGPT) 21 U/L (0-50); AST (SGOT) 19 U/L (17-59); Albumin 2.7 g/dl (3.5-5.0); Alkaline Phosphatase 68 U/L (38-126); Blood Urea Nitrogen 11 mg/dl (9-20); Carbon Dioxide 26 mmol/L (22-30); Chloride 102 mmol/L (98-107); Estimated Creatinine Clearance 90 ml/min; Glucose 123 mg/dl (70-99); Potassium 3.6 mmol/L (3.5-5.1); Sodium 135 mmol/L (135-145); Total Bilirubin 0.8 mg/dl (0.2-1.3); Total Protein 5.2 g/dl (6.3-8.2); eGFR > 60.00
[2024-06-21] MEDS: PROSCAR 5 MG PO (09:20)
[2024-06-21] MEDS: ELIQUIS 5 MG PO (09:20)
[2024-06-21] MEDS: NSS (PRESERVATIVE FREE) 10 ML IV (09:21)
[2024-06-21] MEDS: PROTONIX IV 40 MG IV (09:21)
[2024-06-21] MEDS: LOPRESSOR 50 MG PO (09:21)
--- NOTE | 2024-06-21 10:20 | W.PN.GS2 ---
Today's Communication / Plan
-
Dispo planning
Assessment / Plan
-
88 yo male presenting with acute cholecystitis in rapid afib
POD 10 RAL cholecystectomy with gangrenous/necrotic gallbladder with purulent drainage encountered
Repeat CT on 06/16 No postoperative fluid collections. Ileus like pattern to the small bowel/colon.
Completed 1 week course of abx
AFVSS
Clinically improving ileus with returning noted GI function, distention much improved. Tolerating clears.
-- Advance to regular diet
-- Analgesics/antiemetics prn
-- OOB as tolerated, encouraged activity/ambulation
-- Continue Eliquis, Hemoglobin stable
Time Spent
Total Time Spent with Patient (in minutes): 20
Subjective Data
-
Date of Service: June 21, 2024
Interval Events:
No acute events overnight. Slept well. Pain Controlled. Denies Nausea/Vomiting, +bowel function. Tolerating diet.
Objective Data
-
Intake and Output
06/20/24 06/21/24 06/22/24
06:59 06:59 06:59
Intake Total 1280 / 1280 760 / 760 240 / 240
Output Total 1280 / 1280 930 / 930 350 / 350
Balance 0 / 0 -170 / -170 -110 / -110
Intake:
Oral fluids 1280 / 1280 760 / 760 240 / 240
Output:
Urine, Voided 1280 / 1280 930 / 930 350 / 350
Other:
Number of approximated MODERATE 3 1 1
amounts of urine
Vital Signs
Temp Pulse Resp BP Pulse Ox
98.8 F 63 18 139/63 98
06/21/24 08:00 06/21/24 09:21 06/21/24 08:00 06/21/24 09:21 06/21/24 08:00
Lab Results
06/21/24 06:42
06/21/24 06:42
Calcium 8.0 mg/dl (8.4-10.2) L 06/21/24 06:42
Magnesium 2.2 mg/dl (1.6-2.3) 06/16/24 05:18
Total Bilirubin 0.8 mg/dl (0.2-1.3) 06/21/24 06:42
Direct Bilirubin 0.3 mg/dl (0.0-0.4) 06/11/24 03:26
AST 19 U/L (17-59) 06/21/24 06:42
ALT 21 U/L (0-50) 06/21/24 06:42
Alkaline Phosphatase 68 U/L (38-126) 06/21/24 06:42
Total Protein 5.2 g/dl (6.3-8.2) L 06/21/24 06:42
Albumin 2.7 g/dl (3.5-5.0) L 06/21/24 06:42
Physical Exam
-
GENERAL/NEURO: Awake, Alert, no distress
CHEST: Unlabored breathing on RA
ABDOMEN: Soft, Non-Tender, mildly distended. Still having some drainage from his left upper quadrant drain site, if this continues today we will closed with a suture. Incisions otherwise clean dry and intact.
Patient has a alejandro catheter: No
Patient has a central line: No
[2024-06-21 11:32] VITALS: BP 136/60; PULSE 59
[2024-06-21 11:35] VITALS: BP 155/65
--- NOTE | 2024-06-21 11:37 | CM ---
Patient for discharge today per physician. Patient walking in hallway with therapy/rolling walker. Patient states she will be here to transport home between 1:30 and 3pm. Patient reviewed IMM with CM and will sign form when she arrives to
transport home. Patient plan is for home with [facility]. CM will continue to follow for discharge planning needs.
Plan; home with [facility].
--- NOTE | 2024-06-21 12:12 | W.PN.HOSP.TC ---
Today's Communication/Plan
-
DC
Assessment / Plan
Assessment / Plan
88yo M with dementia, BPH, HFpEF, moderate MR brought with days of abdominal pain found acute cholecystitis with Afib with RVR. S/P cholecytectomy on 06/12/24. HR improved but postOP complicated with ileus and abd distension. LAter tolerated diet,
GenSx signed off the case. Abx completed and patient recommended for rehab,however family declined and will take patient home with visiting nurse. MEdcially stable for d/c. Minimal leukocytosis on the day of D/C but patient without fever and no
symptoms of infection
A/P:
#New onset Afib with RVR
2/2 infection
Weaned off Cardizem drip to BB
cardio consult
Xarelto
#Acute gangrenous suppurative cholecystitis
#Bilirubinemia 2/2 above, cannot exclude choledocholithiasis
Zosyn switched to Merrem on 06/13/24 since patient appears in distress from abd distension
follow LFT
GenSx: s/p lap [place] on 06/12/24, purulent fluid in gall bladder
#Acute hypoxic respiratory 2/2 abdominal distension
wean off O2 as possible
#Abdominal distension with ileus
resolved
#BPH
watch for retention, follow labs
DVT ppx Xarelto
FUll code
I have spent at least 38min reviewing chart, test results, communication with consultants, family and providing direct patient care
Anticipated Discharge: Today
Subjective/Interval History
-
Date of Service: June 21, 2024
Objective Data
-
Labs:
Laboratory Results
06/21/24
06:42
WBC 12.0 H
Hgb 12.0 L
Hct 36.4 L
Plt Count 244
Sodium 135
Potassium 3.6
Chloride 102
Carbon Dioxide 26
BUN 11
Creatinine 0.7
Glucose 123 H
Calcium 8.0 L
Total Bilirubin 0.8
AST 19
ALT 21
Alkaline Phosphatase 68
Vital Signs:
Vital Signs
Temp Pulse Resp BP Pulse Ox
98.8 F 63 18 139/63 98
06/21/24 08:00 06/21/24 09:21 06/21/24 08:00 06/21/24 09:21 06/21/24 08:00
I&O
06/20/24 06/21/24 06/22/24
06:59 06:59 06:59
Intake Total 1280 / 1280 760 / 760 240 / 240
Output Total 1280 / 1280 930 / 930 350 / 350
Balance 0 / 0 -170 / -170 -110 / -110
Review of Systems
-
History Source: Patient
All other systems: Reviewed and negative
Physical Exam
-
General: No Apparent Distress
HEENT: Normocephalic
Respiratory: Clear to Auscultation
Cardiac: Regular Rhythm
GI: Soft, Nontender and Nondistended
Genito-urinary: No Costovertebral Tender
Musculoskeletal: No Clubbing, No Cyanosis and No Edema
Neuro: Awake, Alert and Oriented
Psych: Calm
--- NOTE | 2024-06-21 12:18 | W.DCSUMMARY ---
Addendum entered and electronically signed by Juan Keane MD 06/23/24 12:06:
Acute hypoxic respiratory failure
Addendum entered and electronically signed by Juan Keane MD 06/21/24 14:08:
COrrection: PT recommended home with home PT
Original Note:
Discharge Summary
Discharge Data
Date of Admission: 06/11/24
Date of Discharge: 06/21/24
-
Pending Results: No
Hospital Course
88yo M with dementia, BPH, HFpEF, moderate MR brought with days of abdominal pain found acute cholecystitis with Afib with RVR. S/P cholecytectomy on 06/12/24. HR improved but postOP complicated with ileus and abd distension. LAter tolerated diet,
GenSx signed off the case. Abx completed and patient recommended for rehab,however family declined and will take patient home with visiting nurse. MEdcially stable for d/c. Minimal leukocytosis on the day of D/C but patient without fever and no
symptoms of infection
I have spent at least 38min reviewing chart, test results, communication with consultants, family and providing direct patient care
Patient was managed for:
#New onset Afib with RVR
#Acute gangrenous suppurative cholecystitis
#Bilirubinemia 2/2 above, cannot exclude choledocholithiasis
#Acute hypoxic respiratory 2/2 abdominal distension
#Abdominal distension with ileus
#BPH
Discharge Plan
-
Patient Disposition: Home with Home Care
Discharge Diagnosis/Procedures: New onset of atrial fibrillation
Acute gangrenous cholecystitis status post cholecystectomy
Acute hypoxic respiratory insufficiency
Ileus postop
Diet: Regular and Low Fat
Additional Diets: Eat a low fat diet if you notice loose stools after surgery
Activity: No strenuous activity
Additional Activity: Do not lift over 15 lbs for the next 2-3 weeks
Bathing Restrictions: OK to Shower
Wound Care: The glue over your incisions will flake off on its own in 2-3 weeks. Avoid scrubbing or picking off the glue. Do not soak in a tub or pool for 2 weeks.
Activity Restrictions/Additional Instructions:
Call your surgeon if you have worsening pain, fever >100.4, or nausea with vomiting
Referrals:
Bonnie Gleason PA-C [Specified Professional Personl] - 07/09/24 11:00 am (You have a cardiology follow-up appointment at the [place] office. Please call with questions)
Anibal Sosa MD [Active] - in two to four weeks
Jn Rouse MD [Family Provider] - in less than 1 week
Prescriptions:
New
metoprolol tartrate 50 mg Tablet
50 mg PO BID Qty: 60 0RF
Eliquis 5 mg Tablet
5 mg PO BID Qty: 60 0RF
Continued
tamsulosin 0.4 MG capsule
0.4 mg PO HS
dutasteride [Avodart] 0.5 MG capsule
0.5 mg PO HS
magnesium glycinate 100 mg Tablet
500 mg PO BID
Discharge Orders:
Discharge Patient (As Directed); Ordered 06/21/24
Ordered By: Juan Keane
Discharge Date and Time
Print Language: SAMI
--- NOTE | 2024-06-23 11:54 | PN.CDI ---
CDI
- -
CDI:
Physician Documentation Request
Admit Date: 06/11/24 00:43
Dear Doctor Lakhwinder,
Patient admitted cholecystitis.
06/13 Hospitalist PN: 'Acute hypoxic respiratory 2/2 abdominal distension, wean off O2 as possible'
06/11 PCN: '5L NC sating low 90s.'
06/14 PCN: 'satting 95% on 4L.'
Selected Entries
06/11/24
15:05 06/11/24
16:23 06/13/24
20:00
Nasal Cannula flow liters per minute 5 5 4
Clarify which of the following accurately represents the patient's respiratory status:
Acute hypoxic respiratory failure
Hypoxia
Other
Additional information for Respiratory Failure:
Recognized criteria for Respiratory Failure (Source: [facility] Jan 2013)
ABGs: (1 or more) Symptoms Please indicate type if known
1. p)2 <60 or RA SPO2 <91% on RA 1. Tachypnea, SOB, dyspnea Hypoxic
2. pCO2 50 and pH <7.35 2. Use of accessory muscles Hypercapnic
3. pO2 decrease of pCO2 increase by 3. Pallor or cyanosis Hypoxic and Hypercapnic
10 mmHg from baseline if known 4. Anxiety or restlessness Unable to determine
5. Unable to speak in full sentences
Supplemental O2 of > 40% (5LPM) Intubation is not required
Use of terms such as suspected, likely, concern for, or probable (associated with a specific diagnosis that is being evaluated, monitored, or treated as if it exists) are acceptable and can be coded in the inpatient setting, when documented at the
time of discharge.
Thank you,
Elvia Stanley RN, BSN
CDI Specialist
Available via [facility] text
Please use your independent medical judgment in providing your response.
== END 2024-06-21 15:28 | disposition home health service (06) | DRG 853 ==
LOC: 2 SOUTH 00:43
PROVIDERS: Hospitalist; Student in an Organized Health Care Education/Training Program; ADMITTING PHYSICIAN Hospitalist; ATTENDING PHYSICIAN Internal Medicine; EMERGENCY PHYSICIAN Emergency Medicine; FAMILY PHYSICIAN Family Medicine; OTHER PHYSICIAN Internal Medicine Cardiovascular Disease; OTHER PHYSICIAN Surgery
PROC: 0FT44ZZ Resection of Gallbladder, Percutaneous Endoscopic Approach (ICD-10-PCS; 2024-06-11)
PROC: 8E0W4CZ Robotic Assisted Procedure of Trunk Region, Percutaneous Endoscopic Approach (ICD-10-PCS; 2024-06-11)
PROC: 0D9670Z Drainage of Stomach with Drainage Device, Via Natural or Artificial Opening (ICD-10-PCS; 2024-06-13)
DX: A41.9 Sepsis, unspecified organism (principal); J96.01 Acute respiratory failure with hypoxia; I50.30 Unspecified diastolic (congestive) heart failure; K80.00 Calculus of gallbladder with acute cholecystitis without obstruction; K82.1 Hydrops of gallbladder; K56.0 Paralytic ileus; K91.89 Other postprocedural complications and disorders of digestive system; F03.A0 Unspecified dementia, mild, without behavioral disturbance, psychotic disturbance, mood disturbance, and anxiety; E11.9 Type 2 diabetes mellitus without complications; E78.00 Pure hypercholesterolemia, unspecified; K21.9 Gastro-esophageal reflux disease without esophagitis; M19.90 Unspecified osteoarthritis, unspecified site; K82.A1 Gangrene of gallbladder in cholecystitis; N40.0 Benign prostatic hyperplasia without lower urinary tract symptoms; I48.91 Unspecified atrial fibrillation; I45.10 Unspecified right bundle-branch block; Y83.8 Other surgical procedures as the cause of abnormal reaction of the patient, or of later complication, without mention of misadventure at the time of the procedure; Y92.239 Unspecified place in hospital as the place of occurrence of the external cause; I11.0 Hypertensive heart disease with heart failure; J44.9 Chronic obstructive pulmonary disease, unspecified; Z79.82 Long term (current) use of aspirin; Z85.51 Personal history of malignant neoplasm of bladder; Z92.21 Personal history of antineoplastic chemotherapy; Z91.030 Bee allergy status; Z83.3 Family history of diabetes mellitus; Z82.49 Family history of ischemic heart disease and other diseases of the circulatory system; Z87.891 Personal history of nicotine dependence
CPT/HCPCS: 88304; 88307; 71046; 74018; 74177; 80048; 80053; 80076; 83605; 83690; 83735; 83880; 84484; 85025; 85027; 85730; 93005; 93306; 97116; 97163; 97530; 99291; Q9967